=== PATIENT | male | born 1970 | race Caucasian/White ===

== ENCOUNTER 2019-06-15 19:22 | Inpatient (IN) ==
[2019-06-16] MEDS ORDERED: MORPHINE IV PRN ×2 (01:00→21:39)
[2019-06-16] MEDS ORDERED: MORPHINE IV ONE (01:00)
[2019-06-16] MEDS ORDERED: MORPHINE ONE (01:09)
[2019-06-16] MEDS ORDERED: VANCOMYCIN IV PER PHARMACY MISC SCH (01:15)
[2019-06-16] MEDS ORDERED: SODIUM CHLORIDE 0.9% INJ ONE (01:28)
[2019-06-16] MEDS ORDERED: PROTONIX IV ONE (01:28)
[2019-06-16] MEDS ORDERED: SODIUM CHLORIDE 0.9% INJ SCH (01:30)
[2019-06-16] MEDS ORDERED: NS 1,000 ML IV ONE (01:44)
[2019-06-16] MEDS ORDERED: PROTONIX 80 MG in NS 80 ML IV ONE (02:00)
[2019-06-16] MEDS ORDERED: VANCOMYCIN 1 GM/NS 1 GM/250 ML IVPB IV ONE ×2 (02:00→17:00)
[2019-06-16 02:15] LABS: BASO# 0.03 X1000 (0.0-0.2); BASO% 0.1 % (0.0-0.8); HEMATOCRIT 17.7 % (42.0-52.0); HEMOGLOBIN 5.4 g/dL (14.0-18.0); IMM GRAN# 0.12 X1000 (0.0-0.04); IMM GRAN% 0.5 % (0.0-0.5); LYMPH% 5.7 % (20.5-51.1); MCH 29.8 PG (27-31); MCHC 30.5 g/dL (33-37); MCV 97.8 FL (81-99); MONO# 1.06 X1000 (0.11-0.59); MONO% 4.7 % (1.7-9.3); MPV 9.5 FL (7.4-10.4); NEUT# 20.26 X1000 (1.4-6.5); PLT 292 X1000 (130-400); RBC 1.81 XMIL (4.7-6.1); RDW 15.1 % (11.5-14.5); WBC 22.77 X1000 (4.8-10.8)
[2019-06-16] MEDS: MAXIPIME 1 GM in NS 50 ML IV SCH (03:00)
[2019-06-16 03:31] LABS: INR 1.88; PROTIME 22.1 Seconds (11.0-16.0)
[2019-06-16 03:32] LABS: PTT 39.6 Seconds (22.3-41.8)
[2019-06-16 04:11] LABS: ALB/GLOB RATIO 0.7; ALBUMIN 2.6 g/dL (3.5-5.0); CALCIUM 9.4 mg/dL (8.8-10.2); CREATININE 9.5 mg/dL (0.7-1.2); TOTAL BILIRUBIN 0.23 mg/dL (0.20-1.00); TOTAL PROTEIN 6.1 g/dL (6.3-8.3)
[2019-06-16 04:13] LABS: POTASSIUM 6.5 mmol/L (3.5-5.1)
[2019-06-16] MEDS ORDERED: HUMULIN R IV ONE (04:54)
[2019-06-16] MEDS ORDERED: D50W SYRINGE IV ONE (04:54)
[2019-06-16] MEDS ORDERED: CALCIUM GLUCONATE 1 GM in NS 50 ML IV ONE (04:54)
[2019-06-16] MEDS ORDERED: ALBUTEROL 0.5% INH CONC FOR HYPERKALEMIA INH ONE (04:54)
--- NOTE | 2019-06-16 05:37 | EKG Report ---
Test Performed on : 06/16/2019 04:48:20 AM Test Reason : Hyperkalemia Blood Pressure : / mmHG Vent. Rate : 109 BPM Atrial Rate : 109 BPM P-R Int : 220 ms QRS Dur : 108 ms QT Int : 326 ms P-R-T Axes : 057 102 -10 degrees QTc Int : 439 ms Sinus tachycardia. with 1st degree AV block. Rightward axis Abnormal QRS-T angle, consider primary T wave abnormality Abnormal ECG No previous ECGs available Confirmed by Hussain Kemp MD ([id number]) on 06/18/2019 9:00:11 AM
[2019-06-16] MEDS: MORPHINE IV PRN ×4 (05:43→19:37)
[2019-06-16] MEDS ORDERED: LOKELMA POWDER PACKET PO ONE (05:50)
--- NOTE | 2019-06-16 06:00 | Diag Imaging Result Doc PS360 ---
EXAM: CHEST-PORTABLE HISTORY: Evaluate for pneumonia TECHNIQUE: Single view COMPARISON: 05/31/2014 FINDINGS: The lungs are well expanded. The heart is not enlarged. The vessels are not distended. There are no infiltrates. No effusion identified. IMPRESSION: No pneumonia Electronically signed by Scar Jean 06/16/2019 5:57 AM
--- NOTE | 2019-06-16 06:23 | HISTORY AND PHYSICAL ---
ADDENDUM: I agree with most components of history, physical, assessment and plan. This is an addendum to the history and physical dictated by the nurse practitioner. In brief, Mr. Rodrigez is a 48 year old man with past medical history of end-stage renal disease on Wednesday, Wednesday, Wednesday hemodialysis, bilateral chronic lower extremity edema, and poor functional status, who had been developing bilateral gluteal wound ulcers since the last several weeks who saw the general surgeon in his office yesterday morning. However, when he went back home, he started feeling very weak and intermittently confused so he was sent to the [facility] where he was found to have systolic blood pressure of 80/50. WBC count of 31,000 and hemoglobin close to 4.5. He was given 1 unit of packed red blood cells, and then transferred to [facility] Emergency Room. At the time of my evaluation, he is feeling slightly better and more alert. He states that since last several weeks he has been having black bowel movements, but he has not sought any medical attention. He does document to have history of bleeding peptic ulcer disease in 2009. He has been taking nonsteroidal anti-inflammatory drugs for his bilateral gluteal region pain recently. Vitals suggest, it has been not documented, but he is afebrile to touch. His pulse is in the 90s per minute. His blood pressure is 90/50. He is saturating 100% on 2 L nasal cannula. PHYSICAL EXAMINATION: He has muddy sclera. No cyanosis, clubbing, or icterus. LUNGS: Air entry bilaterally equal. No wheeze, rhonchi, or crackles. CARDIOVASCULAR: S1, S2 normal. Tachycardic with heart rate close to 100. No murmur, rub, or gallop. ABDOMEN: Soft. Mild generalized tenderness. EXTREMITIES: Bilateral lower extremity edema. He does have left upper AV fistula, bilateral gluteal region wounds which are stage IV according to discussion with the nurse practitioner. NEUROLOGIC: He is currently alert and oriented x3. LABORATORY: Are pending however according to labs in [facility], [place] [address], hemoglobin of 4.5. His coag's were normal. Troponin's were normal. IMAGING: Chest x-ray does not suggest any organized consolidation. ASSESSMENT AND PLAN: 1. Suspected sepsis from bilateral gluteal wound infection. 2. Acute blood loss anemia, likely due to upper gastrointestinal bleed with use of NSAID pain medications. 3. Hypotension due to sepsis and acute blood loss anemia. 4. End-stage renal disease, on Wednesday, Wednesday, Wednesday hemodialysis with hyperkalemia. 5. Bilateral gluteal region wounds. PLAN: 1. I will give patient intravenous fluid bolus. We will give him blood transfusion with frequent CBC monitoring. I will also start him on sodium zirconium for potassium lowering effect. I will start him on intravenous antibiotics, and follow up with wound culture and blood culture. 2. I will also start him on intravenous pantoprazole bolus with intravenous infusions every 12 hours. We will consult Gastroenterology for possible need for EGD. TIME SPENT: More than 30 minutes of critical care time was spent in taking of this patient. Plan of care discussed with him. His questions were answered. cc: Isiah Morrison MD
[2019-06-16] MEDS ORDERED: VANCOMYCIN 1 GM/NS 1 GM/250 ML IVPB IV SCH (06:45)
[2019-06-16] MEDS ORDERED: NS 500 ML IV ONE (06:47)
[2019-06-16] MEDS ORDERED: TIGHT: 0.2 ML/HR FOR DIALYSIS MISC PRN (06:48)
[2019-06-16] MEDS ORDERED: NS 2,000 ML MISC PRN (06:48)
[2019-06-16] MEDS ORDERED: HEPARIN IV PRN (06:48)
[2019-06-16] MEDS ORDERED: ZOFRAN IV PRN (07:25)
[2019-06-16] MEDS ORDERED: TYLENOL PO PRN (07:29)
[2019-06-16] MEDS ORDERED: LOKELMA POWDER PACKET PO SCH (09:00)
[2019-06-16 10:08] LABS: HEMATOCRIT 28.8 % (42.0-52.0); HEMOGLOBIN 9.8 g/dL (14.0-18.0)
--- NOTE | 2019-06-16 10:19 | HISTORY AND PHYSICAL ---
CONVEYOR TENDER: Luisito Delaney MD. PRIMARY CARE PHYSICIAN: The patient states that he is in the process of switching over to Dr. Tam Pedraza, though has not had his initial appointment as of yet. Former primary care physician was Sj Newman MD. DATE AND TIME: 06/16/2019 at 0030. CHIEF COMPLAINT: Low blood pressure, weakness, and confusion. HISTORY OF PRESENT ILLNESS: Mr. Rodrigez is a 48-year-old male with a past medical history most notable for end-stage renal disease on hemodialysis on Mondays, Wednesdays, and Fridays, nephrogenic systemic fibrosis, anxiety, and Alport syndrome. The patient also reports that he has had a previous history of gastric ulcers in the past as well as a GI bleed. The patient states since October of this year that he has been treated for a right buttock wound and since February of this year he has been being treated for a left buttock wound. He reports that Dr. Galvez with Surgery has been providing wound care treatment outpatient for him. The patient states that due to not being as active that he has had increasing immobility. The patient states that at home that he sits the majority of the time in a recliner with his legs in a dependent position. He also sleeps this way as well. Since his decreased activity, he has also noticed that he has had decrease in his strength as well, though he is still able to ambulate to and from the car to go to his physician appointments. He states that since he has had decreased mobility that he had developed bilateral buttock wounds. The patient reports that he did receive his last dialysis treatment on Wednesday, though due to not feeling well he did not go to his dialysis treatment on Wednesday. He actually did see Dr. Galvez at the wound clinic on , though after returning home he did continue to have weakness, confusion, and low blood pressure and did decided to present to the ER at [place] for further evaluation. The patient also reports that he has had some shortness of breath as well. He also reports that he has been having several episodes of diarrhea on ; this was approximately five to six episodes. They report his stools are very dark, tarry black in color. I did witness this when he had a bowel movement at bedside. The patient denies any abdominal pain other than when he feels like he has to have a bowel movement he reports crampy abdominal pain. Though he does have some chronic pain problems in his back and related to his wounds in his legs. The patient does have chronic bilateral lower extremity swelling, which has been being treated with Unna boots at this time. He states that he has been taking [id number] Aleve as well, though he denies any alcohol use. He also denies any headache, dizziness, lightheadedness, near syncope or syncope. He denies any chest pain. He denies any nausea or vomiting. He denies any dysuria. The patient actually states that he does not produce any urine. Other than his chronic pain related to his bilateral lower extremity swelling, he denies any new or worsening pain, numbness, tingling or swelling in the extremities. The patient was first initially seen at [facility] secondary to possible sepsis, as well as symptomatic anemia. He was transferred to [facility] for further treatment and evaluation. Upon my evaluation he does have a wound noted to each buttock. The one on the right was currently still packed. The one on the left may have had packing noted previously but this had been removed. On examination of his left buttock wound, it was an opening and approximately the size of a golf ball, though the patient's wound is tunneled very deeply. These wounds do have a foul odor present. As previously mentioned, we did note black liquid stool upon examination. The patient is experiencing symptomatic anemia. He was given 1 unit of packed red blood cells at [facility], though upon repeat labs his hemoglobin was 5.4, hematocrit was 17.7, and white blood cell count was 22,770. His potassium was also elevated at 6.5 with a plasma lactate of 3.7 as well. The patient has been borderline hypotension but at this time is maintaining adequate mean arterial pressures that are in the high 60s and 70s. He has been placed in the ICU for close monitoring. REVIEW OF SYSTEMS: A 14-point review of systems was conducted with the patient and all were negative except for pertinent positives mentioned above in the HPI. I would like to note that the patient did deny any known fevers, body aches or chills. PAST MEDICAL HISTORY: 1. End-stage renal disease on hemodialysis on Mondays, Wednesdays and Fridays, followed by Dr. Delaney. 2. Nephrogenic systemic fibrosis. 3. Anxiety. 4. Alport syndrome. 5. Visual problems. 6. Hearing impaired. The patient does wear a hearing aid in his right ear. 7. History of reported GI bleed. From my understanding was possibly gastric ulcers. PAST SURGICAL HISTORY: 1. Left forearm AV fistula. 2. PermCath placement and subsequent removal. 3. Nasal surgery. 4. Tonsillectomy and adenoidectomy. 5. Kidney transplant x2. 6. Parathyroidectomy. 7. Left ear surgery. SOCIAL HISTORY: The patient denies any tobacco, alcohol or illicit drug use. FAMILY HISTORY: Positive for pancreatic cancer and diabetes mellitus. ALLERGIES: The patient has an allergy to ampicillin. HOME MEDICATIONS: We are waiting for the patient's home medication list to be updated and verified. Once done so, we will continue appropriate medications. DIAGNOSTIC DATA: White blood cell count is 22,770, hemoglobin 5.4, hematocrit 17.7, platelet count is 292,000. PT 22.1, INR 1.88, PTT is 39.6. Sodium 137, potassium 6.5, chloride 90, serum bicarb 18, BUN 153, creatinine 9.5, glucose 121, calcium 9.4. Liver function tests are within normal limits except AST is slightly elevated at 37. Plasma lactate was 3.7. Chest x-ray showed no acute disease. This was per Radiology. EKG showed sinus tachycardia with a first-degree AV block and T-wave abnormalities and a rate of 109 with a QTc of 493. Hemoccult stool was positive. PHYSICAL EXAMINATION: VITAL SIGNS: Temperature is 97.3, heart rate 110, respirations 16, and blood pressure is 105/45 with a MAP of 75. The oxygen saturation is 100% on room air. GENERAL: Mr. Rodrigez is a pleasant 48-year-old male who is resting in the inpatient stretcher, though he is experiencing some pain in his legs and back. He was in no acute distress. He was alert and oriented to person, place, time, and situation. HEENT: Head is normocephalic and atraumatic. The pupils are 3 mm bilaterally, were equal and round, though the patient only had a pupillary response in his right eye, which was brisk. The patient reports that he does not have a pupillary response in his left eye and this is not of new onset. The subconjunctivae are pale. The oral mucosa was slightly dry. The oropharynx was clear. NECK: Supple. Trachea midline. CARDIOVASCULAR: The patient has an S1 and S2 present. No murmurs, rubs, or gallops are appreciated, with a regular rate and rhythm. PULMONARY: The patient has symmetrical chest expansion bilaterally. Lung sounds are clear to auscultation in bilateral full mccray. ABDOMEN: Soft, nontender, and nondistended. Bowel sounds are present in all four quadrants and normoactive. EXTREMITIES: No cyanosis or edema noted. Motor and sensory were intact in all extremities. Radial pulses were 2+ bilaterally, though pedal pulses were not able to be palpated due to the patient's Unna boot-type wraps that were present. Though he did have capillary refill that was less than 3 noted in toes distal to his bilateral leg wraps. INTEGUMENTARY: The patient's skin is pink, warm, and dry, though the patient does have two large wounds noted to the bilateral buttocks. The one on his right buttock does have an opening approximately the size of a quarter to golf ball. It does appear that it is tunneled though he does have packing present at this time. Though his left buttock wound was open, if there was packing present it had been removed. The patient's wound opening was approximately the size of a golf ball though was tunneled quite deep. These wounds did have a foul odor noted with some purulent-looking drainage as well. NEUROLOGICAL: The patient is alert and oriented to person, place, time, and situation. He is able to move all extremities. ASSESSMENT AND PLAN: 1. Gastrointestinal bleed. We suspect this is upper gastrointestinal bleed given the patient's history of gastrointestinal bleed in the past as well as his reported nonsteroidal anti- inflammatory drugs use and that he is having melena. He is having symptomatic anemia. He did receive 1 unit of packed red blood cells at [facility]. We will continue with an additional 2 units here after receiving initial lab work upon his arrival at our facility with a hemoglobin of 5.4 and hematocrit of 17.7. He had been borderline hypotensive though at this time is maintaining mean arterial pressures that are in the high 60s and 70s, though we will continue to monitor closely. He will receive the 2 units of blood as well as some intravenous fluids. He will be n.p.o. We will place him with Protonix 40 mg intravenous q.12 h. and have placed a consult with Dr. Juve Brennan with Gastroenterology and will await their evaluation and further recommendations for management. 2. Symptomatic anemia. This is likely secondary to gastrointestinal bleeding. We will continue with treatment as mentioned above in #1. The patient is receiving a blood transfusion. We will repeat a series of hemoglobin and hematocrit for close monitoring. 3. Right and left buttock wounds. The patient does have one wound noted to the right buttock and one wound noted to the left buttock. Dr. Galvez has been treating the patient for these outpatient at the wound clinic. We will place a consult with him and will await his evaluation and further recommendations for management. The patient has been placed with antibiotic coverage of cefepime and vancomycin. We have obtained wound cultures. We have also placed a consult with the wound care nurse. We will continue to follow along. 4. Possible sepsis. We will continue with treatment as mentioned above with antibiotics and fluids. We will closely monitor his blood pressure as well. Blood cultures and wound cultures have been obtained, though the patient at this time does have adequate tissue perfusion. 5. Mild hypotension. As previously mentioned, since receiving a unit of blood and intravenous fluids this has improved. He is maintaining adequate mean arterial pressures at this time, though we will continue to monitor this closely. The patient has been placed in the intensive care unit and we will continue to follow along. 6. End-stage renal disease, on hemodialysis on Mondays, Wednesdays, and Fridays. We have placed a consult with Dr. Delaney. We will await his evaluation, and further recommendations for management. 7. Hyperkalemia. The patient's potassium was 6.5. We have treated him with 8 units of intravenous insulin, 1 amp of D50 intravenously, 1 g of calcium gluconate, and hyperkalemic albuterol nebulizer treatment. We have also gone ahead and given him his initial dose of Lokelma. We have ordered for repeat chemistry later on this morning. We will continue to follow this closely. The patient will be on continuous cardiac telemetry and pulse oximetry with frequent vital signs in the intensive care unit. 8. Deep venous thrombosis (DVT) prophylaxis. He will be provided with sequential compression devices (SCDs). We will hold any anticoagulants given his gastrointestinal bleeding and symptomatic anemia. The patient has been placed in the ICU for close monitoring. He will have vital signs per ICU protocol. We will do strict intake and output, incentive spirometry. Further orders and recommendations pending hospital course, diagnostic studies, and physician evaluation. Dictated by CHARLOTTE Pelaez for Isiah Morrison MD cc: Isiah Morrison MD MTDD
[2019-06-16 10:38] LABS: CALCIUM 9.6 mg/dL (8.8-10.2); CREATININE 4.5 mg/dL (0.7-1.2); POTASSIUM 3.6 mmol/L (3.5-5.1)
--- NOTE | 2019-06-16 11:13 | PROGRESS NOTE ---
DATE: 06/16/2019 SUBJECTIVE: This patient is getting dialysis at this moment. He is complaining of back pain. He is also complaining of gluteal discomfort. He does have ulcers in the gluteal area with some necrotic areas,. I could not see them completely because it is really hard to move him during dialysis, but the Surgery Department has been consulted and probably they will do an I and D on that area. His lower extremities are wrapped and they are swollen. He is hard of hearing, and likely he is blind also. OBJECTIVE: Vital Signs: Temperature 97.1 degrees, pulse 119, respiratory rate 18, blood pressure 103/59, oxygen saturation is 100% on nasal cannula. HEENT: Head normocephalic, atraumatic. Neck: Supple. No JVD. No masses. Central trachea. Chest: Clear to auscultation. Some crepitus at the bases. Abdomen: Soft, nontender, nondistended. No hepatosplenomegaly. Extremities: Bilateral lower extremities his legs are wrapped and that looks new. His toes are swollen and a little bit red. All his fingers from his left hand have been removed previously. He has ulcers at the level of the buttock area bilaterally. They seem to be deep with some necrotic areas/black areas. A strong odor that as per the patient has been going on for a few weeks. Neurological: The patient is alert. He is oriented. He is hard of hearing and likely he is blind. LABORATORY DATA: WBC 22.7, hemoglobin 5.4, hematocrit 17.7, platelets 292,000. Sodium 137, potassium 6.5, chloride 90, bicarbonate 18, BUN 153, creatinine 9.6, glucose 121, calcium 9.4, lactate 3.7. ASSESSMENT AND PLAN: 1. Sepsis likely from his bilateral gluteal wounds. He has been placed on cefepime and vancomycin, we will continue with the same management. The Surgery Department and Nephrology Department has been consulted. 2. End-stage renal disease on hemodialysis. This patient is getting dialysis at this moment. We will monitor. 3. Acute blood loss anemia likely due to upper GI bleed with the use of NSAIDs for pain management. He is getting some units of packed red blood cells, at least 3, and the Gastroenterology Department has been consulted. 4. This patient is hard of hearing and likely he is blind. 5. Hyperkalemia. He is getting dialysis at this moment. CRITICAL CARE TIME: 35 minutes for this patient. cc: Jaron Bazzi MD
--- NOTE | 2019-06-16 12:11 | GENERAL SURGERY CONSULTATION ---
DATE: 06/16/2019 REQUESTING PHYSICIAN: Hospitalist REASON FOR CONSULTATION: Sacral decubitus wounds. HISTORY OF PRESENT ILLNESS: This is a 48-year-old gentleman who I follow [facility], who has Alport syndrome, who we recently saw yesterday in the [facility]. He apparently has had issues with diarrhea, but he did not express this to us at the [facility]. He has had dark tarry stool and became hypotensive and anemic. He was initially seen in [place] and then transferred over here. His hematocrit upon arrival was 17.7. He has been admitted and resuscitated for this GI bleed. I was asked to weigh an opinion on his wounds. His wounds overall, especially to his lower extremities, have been healing significantly. His wounds and pressure ulcers to his hips have improved also. PAST MEDICAL HISTORY: Full list reviewed, but of note, he has Alport syndrome. PAST SURGICAL HISTORY: Full list reviewed. Of note, he has had an AV fistula and previous amputations. SOCIAL HISTORY: Lives at home. ALLERGIES: Ampicillin. HOME MEDICATIONS: Reviewed. REVIEW OF SYSTEMS: A full 14 systems reviewed and negative except as specified in HPI. PHYSICAL EXAMINATION: Vital Signs: The patient is appears chronically ill. He has been afebrile. Pulse 119, blood pressure 104/53. General: Chronically ill male, looks older than stated age. HEENT: Normocephalic, atraumatic. Pupils equal, round, reactive to light. Mucous membranes moist. Oropharynx benign. Neck: Supple. Trachea midline. Cardiovascular: Some mild tachycardia. Lungs: Grossly clear. Abdomen: Soft, nontender. Extremities: Previous amputation noted. Wounds to the sacrum and ischium noted. Lower extremities both have Unna boot. I reviewed his wounds yesterday in the [facility], and they were normal. Skin: Pale. Neurologic: Grossly intact. LABORATORY: Reviewed from early this morning. Hematocrit 17. Potassium is 6.5. Lactate 3.7. White blood cell count 22.7. ASSESSMENT AND PLAN: A 48-year-old man with possible GI bleed. 1. Possible gastrointestinal bleed. At this time, I recommend a GI consult. I agree with resuscitation and close monitoring. He does have a significant leukocytosis, and he has been started on cefepime. He may need further imaging to evaluate any intra-abdominal process causing this. I do not suspect his leukocytosis is related to his wound because his wounds actually have been healing and improving. We will continue to follow over the weekend. 2. Pressure ulcers. At this time, continue local wound care. We will get full instructions back from the [facility] Care Center. cc: Jim Galvez MD
[2019-06-16] MEDS: LOKELMA POWDER PACKET PO SCH ×2 (12:42→16:51)
[2019-06-16] MEDS: PROTONIX IV SCH ×2 (14:30→19:43)
[2019-06-16] MEDS: DAKIN'S 0.25% SOLN TOP SCH ×2 (14:31→20:49)
--- NOTE | 2019-06-16 15:21 | GASTROENTEROLOGY CONSULTATION ---
DATE: 06/16/2019 REASON FOR CONSULTATION: Acute blood loss anemia and melena. HISTORY OF PRESENT ILLNESS: Mr. Hussain Rodrigez is a 49-year-old gentleman with end-stage renal disease on hemodialysis, chronic lower extremity edema, and bilateral gluteal ulcers, who presented yesterday with hypotension, generalized weakness, confusion, and found to have a hemoglobin of 5.4 from unknown baseline. History obtained primarily from the chart as patient is not cooperative with interview at bedside. He says that he is irritated. Per report, the patient was seen by his general surgeon yesterday morning for his bilateral gluteal ulcers. He went home that day, and started feeling weak and confused. Initially, he was sent to [facility] and found to have a blood pressure of 80/50. [place] [address] and hemoglobin of 4.5. He was given 1 unit of packed red blood cells and transferred to [facility]. He reports that he had several weeks of black bowel movements but, has not sought attention for this. He does have a remote history of peptic ulcer disease in 2009 and has been taking NSAIDs [id number] for his gluteal pain. On presentation here to the hospital, he was found to have a blood pressure of 90/50 and tachycardic. He was started on antibiotics with vancomycin and cefepime, given IV fluid bolus of normal saline, and started on IV PPI 40 mg twice a day, and has been transfused 3 units of packed red blood cells. REVIEW OF SYSTEMS: Limited given patient is not cooperative with interview. PAST MEDICAL HISTORY: As per HPI. Other: Patient has partial blindness, and has hearing loss. PAST SURGICAL HISTORY: He has a history of AV fistula, and prior tunneled dialysis catheter placement. MEDICATIONS: They have not been reconciled. ALLERGIES: Ampicillin. SOCIAL HISTORY: Unable to obtain. FAMILY HISTORY: Unable to obtain. PHYSICAL EXAMINATION: Vital Signs: Current temperature 96.5 degrees, heart rate of 113, respiratory rate 16, blood pressure 83/51, and O2 saturation 100% on room air. General: Patient is awake, alert, and in no acute distress. Does not make eye contact. Does not answer any questions. Reports feeling irritated. HEENT: Sclerae anicteric. Moist mucous membranes. Extraocular motor intact. Neck: Supple. No JVD or lymphadenopathy. Cardiac: Tachycardic. No murmurs. Lungs: Clear to auscultation bilaterally anteriorly. Abdomen: Soft, nontender, and nondistended. Bowel sounds present. Extremities: He has some compression dressings bilaterally with some 1 to 2+ edema of his lower extremities. Reviewed images of his gluteal lesions. He has pretty significant open wounds in his buttocks bilaterally with necrotic tissue. LABORATORY: White count of 22.7, hemoglobin is 5.4, and platelets of 292,000. INR is 1.88. Sodium 137, potassium 6.5, chloride of 90, bicarb of 18. Anion gap of 29, BUN of 153, creatinine 9.5, and glucose of 121. LFTs notable for AST of 37, total protein 6.1, albumin 2.6, and lactate of 3.7. ASSESSMENT AND PLAN: Mr. Hussain Rodrigez is a 48-year-old gentleman with past medical history of end-stage renal disease on hemodialysis, bilateral decubitus ulcers in the buttocks, and history of peptic ulcer disease, who presents with hypotension in the setting of sepsis plus or minus and acute blood loss. GI is consulted for normocytic anemia and melena. The patient has been transfused 3 units since admission. We will check a post transfusion hemoglobin. Avoid any NSAIDs or blood thinners. He is on antibiotics for probable wound infections. Surgery has been consulted. Nephrology is following. The patient is undergoing dialysis currently. Recommend continuing IV Protonix b.i.d., and trend his hemoglobin every 6 to 8 hours and transfuse to goal hemoglobin of 7 to 8. His INR is 1.88 consistent with some mild coagulopathy likely nutritional given his albumin is also low. Recommend rechecking lactate as per primary correcting hyperkalemia and metabolic derangements. We will consider diagnostic EGD in the next 24 to 48 hours depending on clinical course. We will hold off at this time until his hyperkalemia is improved and hemodynamics are better. Thank you for this consult. We will follow with you. Please call with any questions or concerns.
--- NOTE | 2019-06-16 15:26 | NEPHROLOGY CONSULTATION ---
DATE: 06/16/2019 REASON FOR CONSULTATION: Assistance with management, ESRD. I was recently contacted by the ER staff in [facility] and the ER staff in [facility]. HISTORY OF PRESENT ILLNESS: Mr. Rodrigez is a 48-year-old white male who is known to us from the outpatient dialysis arena. He has been on dialysis for 15+ years and has had a debilitating declining course in the last year. He has severe peripheral neuropathy and chronic pain, metabolic bone disease, etc. Because of this, his mobility is low and has been declining. He has been dealing with severe decubitus ulcers, and I believe Dr. Galvez has been helping him manage these problems. He presented to the emergency room in [place] with severe weakness. His initial evaluation found a hemoglobin of 4. He received 1 unit of blood after consultation with me, and then arrangements were made to transfer. At the time of my exam, he is obtunded. Eyes are half open, but he does not answer any of my questions. He does respond to tactile stimuli, but not enough to be aroused. The notes indicate that he was experiencing melenic stool for an extended time, but did not seek medical attention. PAST MEDICAL HISTORY: ESRD, IgA nephropathy, hypertension, decubitus ulcers, anemia, metabolic bone disease, hyperphosphatemia, chronic pain syndrome. HOME MEDICATIONS: Include cyproheptadine, guaifenesin, naproxen, morphine ER, fentanyl, ciprofloxacin, ondansetron. ALLERGIES: Penicillin. SOCIAL HISTORY: He is and lives with his in the [place] area. No alcohol or tobacco. FAMILY HISTORY: Otherwise noncontributory. REVIEW OF SYSTEMS: Otherwise noncontributory. PHYSICAL EXAMINATION: Vital Signs: Blood pressure 83/51, heart rate 113, respirations 16, afebrile. Generally: As above. Skin: Pale and dry. HEENT: Conjunctivae are pale. Pupils are equal. Oropharynx is dry. Neck: The neck veins are not appreciated. Heart: Distant, but regular. Lungs: Equal, shallow, no crackles. Abdomen: Soft. Bowel sounds are diminished. No organomegaly. Extremities: Have 3+ edema that is woody. Lower legs are dressed. IMPRESSION AND PLAN: 1. Chronic kidney disease 5D. Dialysis today with 2-potassium bath and a goal of 3 to 4 liters as his blood pressure allows. 2. Hyperkalemia. Secondary to gastrointestinal bleeding and transfusion. Plan as above. 3. Metabolic acidosis. Presumably related to his renal dysfunction. Observe. 4. Profound anemia. Gastrointestinal has been consulted. Transfuse to hemoglobin greater than 8. 5. I have reviewed his medications. I have dosed vancomycin as per the request of the primary team. No other changes. cc: Luisito Delaney MD
[2019-06-16 15:59] LABS: HEMATOCRIT 25.5 % (42.0-52.0); HEMOGLOBIN 8.5 g/dL (14.0-18.0)
[2019-06-16 22:47] LABS: HEMATOCRIT 22.3 % (42.0-52.0); HEMOGLOBIN 7.3 g/dL (14.0-18.0)
[2019-06-16] MEDS ORDERED: NS 250 ML ONE (23:24)
[2019-06-17] MEDS: MAXIPIME 1 GM in NS 50 ML IV SCH (00:24)
[2019-06-17] MEDS ORDERED: OFIRMEV 1000 MG/ISOTONIC SOLN 1,000 MG/100 ML BOTTLE IV ONE (00:55)
[2019-06-17] MEDS: MORPHINE IV PRN ×2 (03:04→06:10)
[2019-06-17 05:08] LABS: BASO# 0.02 X1000 (0.0-0.2); BASO% 0.1 % (0.0-0.8); EOS# 0.04 X1000 (0.0-0.7); EOS% 0.2 % (0.0-10.0); HEMATOCRIT 24.9 % (42.0-52.0); HEMOGLOBIN 8.3 g/dL (14.0-18.0); IMM GRAN# 0.12 X1000 (0.0-0.04); IMM GRAN% 0.6 % (0.0-0.5); LYMPH# 1.44 X1000 (1.2-3.4); LYMPH% 7.3 % (20.5-51.1); MCH 29.3 PG (27-31); MCHC 33.3 g/dL (33-37); MONO# 1.42 X1000 (0.11-0.59); MONO% 7.2 % (1.7-9.3); MPV 9.6 FL (7.4-10.4); NEUT# 16.61 X1000 (1.4-6.5); NEUT% 84.6 % (42.2-75.2); PLT 235 X1000 (130-400); RBC 2.83 XMIL (4.7-6.1); RDW 15.8 % (11.5-14.5); WBC 19.65 X1000 (4.8-10.8)
[2019-06-17 05:21] LABS: ALB/GLOB RATIO 0.7; ALBUMIN 2.7 g/dL (3.5-5.0); CALCIUM 9.1 mg/dL (8.8-10.2); CREATININE 6.4 mg/dL (0.7-1.2); POTASSIUM 4.8 mmol/L (3.5-5.1); TOTAL BILIRUBIN 0.43 mg/dL (0.20-1.00); TOTAL PROTEIN 6.4 g/dL (6.3-8.3)
[2019-06-17 07:06] LABS: BANDS 2 % (0-1); LYMPHS 6 % (21-51); MONO 2 % (1-9); SEGS 88 % (42-75)
[2019-06-17] MEDS: PROTONIX IV SCH (08:02)
[2019-06-17] MEDS: DAKIN'S 0.25% SOLN TOP SCH ×2 (08:04→21:37)
[2019-06-17] MEDS ORDERED: AMIDATE ONE ×2 (09:06→09:52)
[2019-06-17] MEDS ORDERED: XYLOCAINE-MPF 2% ONE (09:06)
--- NOTE | 2019-06-17 09:20 | PROGRESS NOTE ---
DATE: 06/17/2019 SUBJECTIVE: As per the patient, he is feeling better today compared with yesterday, but he is complaining of a lot of back pain and gluteal pain. He is going today for an EGD and during sedation also we will try to clean his wounds. Hemoglobin and hematocrit are better than compared with yesterday. We will continue to monitor. We will continue with antibiotics. OBJECTIVE: Vital Signs: Temperature 98.9 degrees, pulse 91, respiratory rate 18, blood pressure 108/62, oxygen saturation 100% on room air. HEENT: Head normocephalic. No trauma. Neck: Supple. No JVD. No masses. Central trachea. Chest: Clear to auscultation. Some crepitus at the bases. Abdomen: Soft, nontender, nondistended. No hepatosplenomegaly. Extremities: His legs are wrapped, his toes are swollen and a little bit red. Also, his finger from his left hand has been removed previously. He has an ulcer at the level of the buttock area bilaterally. This seems to be deep with some necrotic tissue and/or black area. Neurological: The patient is alert, he is oriented. He is hard of hearing and probably he also has some blindness. LABORATORY: WBC 19.6, hemoglobin 8.3, hematocrit 24.9, platelets 235. Sodium 139, potassium 4.8, chloride 95, bicarbonate 22. BUN 89, creatinine 6.4, glucose 111, calcium 9.1. ASSESSMENT AND PLAN: 1. Sepsis secondary to bilateral gluteal wounds. He has been placed on broad-spectrum antibiotics. We will continue with same management. Surgery Department and Nephrology Department on board. 2. End-stage renal disease on hemodialysis. This patient received dialysis yesterday. We will continue to monitor. 3. Acute blood loss anemia, likely due to upper gastrointestinal bleed. Apparently he was using nonsteroidal anti-inflammatory drugs for pain management. He received 4 units of packed red blood cells yesterday, and his hemoglobin improved; upon admission was 5.4 and today is 8.3. He will have an endoscopy done today. 4. Hyperkalemia, resolved. Today is 4.8 upon admission was 6.5. 5. Patient is hard of hearing and probably blind. CRITICAL CARE TIME: 35 minutes. cc: Jaron Bazzi MD
[2019-06-17] MEDS ORDERED: FENTANYL ONE (09:59)
--- NOTE | 2019-06-17 09:59 | ENDOSCOPY OPERATIVE NOTE ---
[facility] ENDOSCOPY OPERATIVE NOTE , PATIENT: Hussain Rodrigez ADMISSION DATE: 06/17/2019 [facility]#: [id number] [facility] 1970 [id number] EGD PROCEDURE REPORT PROCEDURE DATE: 06/17/2019 SURGEON: Juve Brennan MD STATUS: inpatient LOADER ENGINEER: PREOPERATIVE DIAGNOSIS: The patient is a 48 yr old male here for an EGD due to anemia and melena. PROCEDURE PERFORMED: EGD, diagnostic MEDICATIONS: Per Anesthesia TOPICAL ANESTHETIC: none CONSENT: The patient understands the risks and benefits of the procedure and understands that these r isks include, but are not limited to: sedation, allergic reaction, infection, perforation and/or bleeding. Alternative means of evaluation and treatment include, among others: physical exam, x-rays, and/or surgical intervention. The patient elects to proceed with this endoscopic procedure. HISORY AND PHYSICAL: 06/17/2019 function. Hand hygiene and appropriate measures for infection prevention was taken. After the risks, benefits and alternatives of the procedure were thoroughly explained, Informed consent was verified, confirmed and timeout was successfully executed by the treatment team. The patient was anesthetized with topical anesthesia and the [id number] ([id number]) endoscope was introduced through the mouth and advanced to the second portion of the duoden um. Retroflexion was performed in the stomach and revealed no abnormalities. The gastroscope was then slowly withdraw n and removed. ESOPHAGUS: Esophagitis was found at the gastroesophageal junction. Esophagitis was LA Class A: One o r more mucosal breaks < 5 mm in maximal length. STOMACH: Two non-bleeding and clean-based, cratered ulcers ranging between 5-9mm in size were found i n the prepyloric region of the stomach. Mild gastritis (inflammation) was found in the gastric body. DUODENUM: A single non-bleeding and clean-based ulcer ranging between 3-5 mm in size was found in the duodenal bulb. Mild duodenal inflammation was found in the duodenal bulb. Normal 2nd part of the duodenum. SPECIMENS REMOVED: No ADVERSE EVENTS: There were no complications. POSTOPERATIVE DIAGNOSIS: ESOPHAGUS: Esophagitis was found at the gastroesophageal junction. Esophagitis was LA Class A: One o r more mucosal breaks < 5 mm in maximal length. STOMACH: Two non-bleeding and clean-based, cratered ulcers ranging between 5-9mm in size were found i n the prepyloric region of the stomach. Mild gastritis (inflammation) was found in the gastric body. DUODENUM: A single non-bleeding and clean-based ulcer ranging between 3-5 mm in size was found in the duodenal bulb. Mild duodenal inflammation was found in the duodenal bulb. Normal 2nd part of the duodenum. RECOMMENDATIONS: Transition PPI from IV to oral pantoprazole 40mg PO BID and continue for 3 month s Advance diet as tolerated Avoid NSAIDs/aspirin Trend H/H daily, transfuse prn for goal hgb 7-8 Recommend repeat EGD in 3 months to assess ulcer healing REPEAT EXAM: Juve Brennan MD eSigned: Juve Brennan MD 06/17/2019 9:58 AM cc: PATIENT NAME: Hussain Rodrigez MR#: [id number]
[2019-06-17] MEDS: DILAUDID IV PRN ×4 (10:45→22:50)
--- NOTE | 2019-06-17 14:37 | GENERAL SURGERY PROGRESS NOTE ---
DATE: 06/17/2019 SUBJECTIVE: Wound care is going okay. No fevers. No further GI bleeding. Pulse 91, blood pressure 108/62, oxygen saturation 100 percent. General. He is alert. Abdomen soft. Unna wraps are in place on bilateral lower extremities. White count down to 19, hematocrit 24, creatinine 6.4. ASSESSMENT/PLAN: 48-year-old gentleman with a chronic sacral and leg wounds. He presents now with a gastrointestinal bleed. Plan for endoscopy with Dr. Brennan this morning. Will continue treatment of this, local wound care, dressing changes. I also believe he is undergoing dressing changes under anesthesia while in the endoscopy suite. cc: Myra Agarwal MD
--- NOTE | 2019-06-17 15:08 | NEPHROLOGY PROGRESS NOTE ---
DATE: 06/17/2019 SUBJECTIVE: He is in pain and he attributes this to lying in the bed. He states he has not been in a bed in years. His pain is related to his wounds. OBJECTIVE: Vital Signs: Blood pressure 129/86, heart rate 109, respirations 16, afebrile. General: No acute distress. Skin: Warm and dry. Neck: Neck veins are not distended, are not visible. Heart: Regular. Lungs: Equal. Abdomen: Soft. Extremities: Have 3+ edema. IMPRESSION: 1. Chronic kidney disease 5D. He will have his next routine dialysis on Wednesday. 2. Electrolytes/acid base in target. 3. Anemia. Hemoglobin is stable at 8.3. Endoscopy demonstrated several ulcers but no active bleeding. 4. Bacteremia. Blood cultures were positive at [facility]. Those results are not in our system as of yet. He is receiving vancomycin and cefepime. cc: Luisito Delaney MD
[2019-06-17] MEDS: PROTONIX PO SCH (21:37)
[2019-06-18] MEDS: MAXIPIME 1 GM in NS 50 ML IV SCH (01:15)
[2019-06-18] MEDS: DILAUDID IV PRN ×6 (02:04→21:39)
[2019-06-18 06:35] LABS: BASO# 0.04 X1000 (0.0-0.2); BASO% 0.2 % (0.0-0.8); EOS% 0.5 % (0.0-10.0); HEMATOCRIT 27.5 % (42.0-52.0); HEMOGLOBIN 8.6 g/dL (14.0-18.0); IMM GRAN# 0.15 X1000 (0.0-0.04); IMM GRAN% 0.7 % (0.0-0.5); LYMPH# 2.18 X1000 (1.2-3.4); MCH 28.8 PG (27-31); MCHC 31.3 g/dL (33-37); MONO# 1.57 X1000 (0.11-0.59); MONO% 7.2 % (1.7-9.3); MPV 9.9 FL (7.4-10.4); NEUT# 17.77 X1000 (1.4-6.5); NEUT% 81.4 % (42.2-75.2); PLT 230 X1000 (130-400); RBC 2.99 XMIL (4.7-6.1); RDW 16.8 % (11.5-14.5); WBC 21.81 X1000 (4.8-10.8)
[2019-06-18 07:04] LABS: CALCIUM 9.5 mg/dL (8.8-10.2); CREATININE 7.6 mg/dL (0.7-1.2); MAGNESIUM 2.4 mg/dL (1.5-2.7); PHOSPHORUS 4.6 mg/dL (2.7-4.5); POTASSIUM 5.6 mmol/L (3.5-5.1)
[2019-06-18] MEDS ORDERED: HUMULIN R IV ONE (07:47)
[2019-06-18] MEDS ORDERED: ALBUTEROL 0.5% INH CONC FOR HYPERKALEMIA INH ONE (07:47)
[2019-06-18] MEDS ORDERED: CALCIUM GLUCONATE 4.65 MEQ in NS 50 ML IV ONE (07:48)
[2019-06-18] MEDS ORDERED: LOKELMA POWDER PACKET PO STA (07:48)
[2019-06-18] MEDS ORDERED: D50W SYRINGE IV ONE (07:48)
--- NOTE | 2019-06-18 08:02 | PROGRESS NOTE ---
DATE: 06/18/2019 SUBJECTIVE: The patient is feeling better today. He is status post EGD yesterday. He is sitting at the bedside. He is complaining of bilateral lower extremity and gluteal area pain. His potassium level is 5.6 today. I will treat the potassium since his next routine dialysis is on Wednesday. OBJECTIVE: Vital Signs: Temperature 98.9 degrees, pulse 101, respiratory rate 18, blood pressure 92/51, oxygen saturation 98 on room air. HEENT: Head normocephalic. No trauma. Neck: Supple. No JVD. No masses. Central trachea. Chest: Clear to auscultation. Some crepitus at the bases. Abdomen: Soft, nontender, nondistended. No hepatosplenomegaly. Extremities: His legs are wrapped. His toes are swollen and a little bit red. Also, his fingers on his left hand have been removed previously. He has an ulcer at the level of the buttock bilaterally. It is covered right now. Neurological: The patient is alert. He is oriented. He is hard of hearing, and probably he is legally blind as well. LABORATORY DATA: WBC 21.8, hemoglobin 8.6, hematocrit 27.5, platelets 230,000. Sodium 136, potassium 5.6, chloride 93, bicarbonate 20, BUN 103, creatinine 7.6, glucose 103, calcium 9.5. Phosphorus 4.6, magnesium 2.4. ASSESSMENT AND PLAN: 1. Sepsis secondary to bilateral gluteal wounds. Continue broad-spectrum antibiotics. I will stop the vancomycin because his cultures showed Escherichia coli. I have requested an evaluation by Infectious Disease Department. Surgery Department on board. 2. End-stage renal disease, on hemodialysis. He will get his next dialysis tomorrow. Will monitor. 3. Hyperkalemia. I will treat it today. It is 5.6. 4. Acute blood loss anemia, likely due to upper gastrointestinal bleed. Apparently, he was using nonsteroidal anti-inflammatory drugs to control his pain. He received 4 units of packed red blood cells. Hemoglobin and hematocrit have been stable. He is status post endoscopy that showed esophagitis at the gastroesophageal junction, LA Class A, one or more mucosal breaks less than 5 mm in maximal length. Stomach: He has two nonbleeding and clean base cratered ulcers ranking between 5 to 9 mm in size, and those were found in the prepyloric region of the stomach. Also, he has mild gastritis in the gastric body. In the duodenum, they found a single nonbleeding and clean based ulcer ranking between 3 to 5 mm in size at the duodenal bulb. Mild duodenitis as well. They have recommended to stop completely the nonsteroidal anti-inflammatory drugs, proton pump inhibitor by mouth twice a day for 3 months, avoid aspirin, and trend hemoglobin and hematocrit daily. Transfuse as needed for goal hemoglobin of 7 to 8. Also, they have recommended an esophagogastroduodenoscopy to be done in 3 months to re-evaluate those ulcers. 5. Gastric ulcers and duodenal ulcer as above. 6. Hyperkalemia. I will treat the potassium. 7. The patient is hard of hearing, and likely blind as well. cc: Jaron Bazzi MD
[2019-06-18] MEDS: PROTONIX PO SCH ×2 (08:41→21:40)
[2019-06-18] MEDS ORDERED: KEFZOL 1 GM/D5W 1 GM/50 ML IVPB IV SCH (09:45)
--- NOTE | 2019-06-18 10:57 | INFECTIOUS DISEASE CONSULT REP ---
DATE: 06/18/2019 CONCLUSION: I have been asked to see the patient regarding his bilateral buttock infected decubitus ulcers. Culture from the ulcer is growing Escherichia coli. I suspect that because the ulcers have a foul odor that there may be an anaerobic component to the patient's infections in both buttocks. Therefore, I am going to add p.o. Flagyl, even though an anaerobic organism has not been discovered yet from the patient's buttock decubitus ulcers. RECOMMENDATIONS: I have substituted Ancef at 1 g IV after each dialysis and I have discontinued cefepime. I have added Flagyl just in case there is an anaerobic component to the patient's ulcers. DISCUSSION: Patient is admitted the hospital with infected bilateral infected buttock decubitus ulcers. They do tunnel. They go fairly deep but they do not go down to the bone. He has been treated as an outpatient for the ulcers. PAST MEDICAL HISTORY/REVIEW OF SYSTEMS: Eyes/Ears: Patient has decreased hearing and vision. Neck: No stiffness. Respiratory: No cough or shortness of breath. Cardiac: No chest pain or palpitations. Abdomen: No nausea, vomiting, or diarrhea. Genitourinary: The patient does not pass any urine. He is eating and he does pass stool. No urine because the patient has end-stage renal disease and is on dialysis. Neurologic: No seizures. The patient can move his extremities, but it is difficult for him to do it. LABORATORY DATA: Patient's ulcers grew Escherichia coli. The patient's CBC shows a white count of 21,810, hemoglobin 8.6, platelet count 230,000. Stool for Clostridium difficile was negative. Creatinine 7.6. GFR is 8. AST is 56. PAST MEDICAL HISTORY: Positive for end-stage renal disease. The patient is on hemodialysis. The patient also has nephrogenic systemic fibrosis. He also has anxiety, Alport syndrome, impaired vision and hearing, and history of GI bleed. PAST SURGICAL HISTORY: Positive for creation of a left arm AV fistula. The patient has had a PermCath placement and then it was removed. The patient has had nasal surgery, tonsillectomy, kidney transplant x2, parathyroidectomy, and left ear surgery. SOCIAL HISTORY[place] . He lives with his mother and son. He has a dog as a pet. The patient does not drink alcohol. He does not use illicit drugs. He does not smoke cigarettes. ALLERGIES: The patient is allergic to ampicillin, he has hives. However, he has had Keflex and tolerated it well. He also during this hospital hospitalization has been having cefepime and tolerating it well. The patient does not smoke cigarettes, drink alcoholic beverages or abuse drugs. FAMILY HISTORY: Positive for diabetes mellitus and pancreatic cancer. HOME MEDICATIONS: Include 1. Ciprofloxacin. 2. Dexamethasone otic drops. 3. Periactin. 4. Fentanyl. 5. Guaifenesin. 6. Morphine. 7. Naproxen. 8. Zofran. PHYSICAL EXAMINATION: Vital Signs: Temperature is 99.9 degrees, pulse 105, respirations 17, blood pressure 97/59. Patient weighs 158 pounds. General: This is an ill- appearing, middle-aged male. He is in no acute distress. Head/eyes/ears/nose/throat: He has decreased hearing and vision. Neck: No meningismus. Lungs: Clear to auscultation. Cardiovascular: Heart rate is regular with a systolic murmur. Abdomen: Soft and nontender. Extremities: In the left arm, the patient has an AV fistula. The site is not erythematous or draining. 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 Both legs are edematous. they have a large dressing around them. Neurologic: The patient is awake. He is very weak. He does not have a tremor. Integument: No rash. Buttocks: Bilateral purulent and foul smelling ulcers. The ulcers are about the size of a golf ball. Thank you for the consult. cc: Justino Smith MD [facility] CENTERJuanito
--- NOTE | 2019-06-18 11:36 | PROVIDER PROGRESS NOTE ---
Progress Note S: No acute overnight events. No N/V/F, abdominal pain. He is tolerating diet. No rectal bleeding or melena. O: Last Vital Signs Temp 99.9 F H 06/18/19 07:38 Pulse 114 H 06/18/19 10:03 Resp 12 06/18/19 10:03 BP 91/54 06/18/19 10:03 Pulse Ox 100 06/18/19 09:03 Height 6 ft Weight 158 lb GEN: chronically ill appearing, NAD, sitting upright HEENT: anicteric, MMM NECK: supple CV: tachycardic, regular PULM: CTAB, no wheezing ABD: soft NT/ND, NABS EXT: chronic edema, both LEs are wrapped NEURO: moving all extremities LABS: 06/18/19 06/18/19 05:00 05:00 WBC 21.81 H Hgb 8.6 L Plt Count 230 Sodium 136 Potassium 5.6 H D Chloride 93 L Carbon Dioxide 20 L BUN 103 H Creatinine 7.6 H EGD 06/17/2019 ESOPHAGUS: Esophagitis was found at the gastroesophageal junction. Esophagitis was LA Class A: One or more mucosal breaks < 5 mm in maximal length. STOMACH: Two non-bleeding and clean-based, cratered ulcers ranging between 5-9mm in size were found in the prepyloric region of the stomach. Mild gastritis (inflammation) was found in the gastric body. DUODENUM: A single non-bleeding and clean-based ulcer ranging between 3-5 mm in size was found in the duodenal bulb. Mild duodenal inflammation was found in the duodenal bulb. Normal 2nd part of the duodenum. A/P: Mr. Hussain Rodrigez is a 48-year-old gentleman with past medical history of end-stage renal disease on hemodialysis, bilateral decubitus ulcers in the buttocks, and history of peptic ulcer disease who presented with hypotension in the setting of sepsis and acute blood loss anemia in the setting of PUD. EGD showed mild esophagitis, gastritis, and duodenitis as well as 3 clean-based ulcers (2 in antrum and 1 in duodenal bulb). These are likely NSAID-induced in the setting of Advil use. No further bleeding. Hgb stable. # Bleeding PUD: cont oral pantoprazole 40mg PO BID and continue for 3 months; repeat EGD in 3 months to check for healing; avoid NSAIDs # Acute blood loss anemia: hgb stable; trend daily, transfuse prn goal hgb 7-8 # Infected decubitus ulcers: on abx per primary # ESRD: on HD per renal Will sign off. Please call with questions.
[2019-06-18] MEDS: DAKIN'S 0.25% SOLN TOP SCH ×2 (11:44→21:40)
[2019-06-18] MEDS: FLAGYL PO SCH ×2 (12:32→21:40)
--- NOTE | 2019-06-18 16:48 | GENERAL SURGERY PROGRESS NOTE ---
DATE: 06/18/2019 SUBJECTIVE: He is out of the bed to chair today. He has got an Unna wraps in places. OBJECTIVE: Low-grade tachycardia. No fevers. Blood pressure 110/63. DIAGNOSTIC STUDIES: I have reviewed his labs. White count 21, hematocrit 27. Creatinine 7.6, potassium is up to 5.6. ASSESSMENT AND PLAN: This is a 48-year-old gentleman with multiple medical issues. He was admitted with gastrointestinal bleed, found have ulcers for his leg, wound change regarding his sacrum, and antibiotics. Monitor going forward. cc: Myra Agarwal MD MTDD
[2019-06-19] MEDS: DILAUDID IV PRN ×7 (00:33→23:56)
[2019-06-19] MEDS: FLAGYL PO SCH ×3 (04:16→21:01)
[2019-06-19 06:19] LABS: BASO# 0.03 X1000 (0.0-0.2); BASO% 0.2 % (0.0-0.8); EOS# 0.13 X1000 (0.0-0.7); EOS% 0.9 % (0.0-10.0); HEMATOCRIT 25.8 % (42.0-52.0); HEMOGLOBIN 8.1 g/dL (14.0-18.0); IMM GRAN# 0.11 X1000 (0.0-0.04); IMM GRAN% 0.7 % (0.0-0.5); LYMPH# 1.03 X1000 (1.2-3.4); LYMPH% 6.8 % (20.5-51.1); MCH 28.9 PG (27-31); MCHC 31.4 g/dL (33-37); MCV 92.1 FL (81-99); MONO# 1.06 X1000 (0.11-0.59); MPV 9.8 FL (7.4-10.4); NEUT# 12.75 X1000 (1.4-6.5); NEUT% 84.4 % (42.2-75.2); PLT 207 X1000 (130-400); RDW 16.4 % (11.5-14.5); WBC 15.11 X1000 (4.8-10.8)
--- NOTE | 2019-06-19 06:39 | GENERAL SURGERY PROGRESS NOTE ---
DATE: 06/19/2019 Reviewed notes from the weekend. He did have an EGD that showed bleeding peptic ulcer disease. He is doing okay at this point. His wounds seem to be relatively stable. He does have E coli in the wounds. At this point, I would recommend continue local wound care with Vashe wet-to-dry and Endo-Boots for the legs. Overall, I think he is stabilizing. His main issue was his bleeding ulcer. I think this is becoming stable and I think we can probably get him out of the ICU if okay with other consultants, but from a surgical point of view just continue local wound care. cc: Jim Galvez MD [facility]
[2019-06-19 06:48] LABS: CALCIUM 9.3 mg/dL (8.8-10.2); CREATININE 9.1 mg/dL (0.7-1.2); POTASSIUM 4.7 mmol/L (3.5-5.1)
--- NOTE | 2019-06-19 07:25 | PROGRESS NOTE ---
DATE: 06/19/2019 INTERVAL HISTORY: No acute events overnight. SUBJECTIVE: Mr. Rodrigez is sitting in the chair by his bed. 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 He denies any chest pain or shortness of breath. OBJECTIVE: Current Vital Signs: Temperature of 98.7 degrees, pulse 94, respiratory rate 16, blood pressure 110/60. He is saturating 100% on room air. General: Does not appear in any acute distress. HEENT: Oral cavity is moist. He has bilateral conjunctival congestion, and he also has hearing ears. Lungs: Air entry bilaterally equal. No wheeze, rhonchi, crackles. Cardiovascular: S1, S2 normal. No murmur, rub, or gallop. Abdomen: Soft, nontender. Extremities: He has bilateral lower extremity edema extending up to thigh. He also has left upper arm AV fistula. Neurologic: He is alert and oriented x3. LABORATORY DATA: CBC suggestive of leukocytosis, stable hemoglobin, normal platelet count. His BMP is pending. ASSESSMENT AND PLAN: 1. Sepsis secondary to bilateral gluteal wounds due to Escherichia coli. Continue intravenous cefazolin and metronidazole as per Infectious Disease recommendation. I will appreciate long- term antibiotic plan. 2. Acute blood loss anemia due to nonsteroidal anti-inflammatory drugs-induced peptic ulcers affecting stomach and duodenum leading to upper gastrointestinal bleeding, status post 4 units of packed red blood cells and esophagogastroduodenoscopy. His hemoglobin appears to be stable at the moment. Continue pantoprazole twice daily for at least 3 months, and outpatient Gastroenterology followup for repeat endoscopy after 3 months. 3. End-stage renal disease, on Wednesday, Wednesday, Wednesday hemodialysis. I will follow up with potassium. His hyperkalemia was treated yesterday. 4. Chronic pain secondary to nephrogenic systemic fibrosis. He was counseled about not using nonsteroidal anti-inflammatory drugs, and I will resume his home medications once reconciled. 5. Disposition. The patient appears to be hemodynamically stable. My plan would be to transfer him to medical floor today. Plan of care discussed with him. His questions have been answered. cc: Isiah Morrison MD
[2019-06-19] MEDS: PROTONIX PO SCH ×2 (08:23→21:01)
[2019-06-19] MEDS ORDERED: NS 2,000 ML MISC PRN (08:29)
[2019-06-19] MEDS ORDERED: NEPHRO-VITE PO SCH (09:00)
[2019-06-19 11:03] LABS: ALBUMIN 3.1 g/dL (3.5-5.0); CALCIUM 9.4 mg/dL (8.8-10.2); CREATININE 6.9 mg/dL (0.7-1.2); PHOSPHORUS 4.4 mg/dL (2.7-4.5); POTASSIUM 4.1 mmol/L (3.5-5.1)
--- NOTE | 2019-06-19 15:34 | INFECTIOUS DISEASE PROGRESS NO ---
DATE: 06/19/2019 PRESENT ILLNESS: The patient has bilateral infected buttock decubitus ulcers. E coli was isolated from the ulcer. The ulcer has a foul odor and I suspect that in addition to E coli, the patient may have an anaerobic infection as well. MEDICATIONS: The patient gets Ancef 1 g after each dialysis and the patient is on Flagyl by mouth. PHYSICAL EXAMINATION: Vital Signs: Temperature is 98.2 degrees, pulse 94, respirations 18, blood pressure 110/60. General: This is an ill-appearing, middle-aged male. He seems to be in pain. Head/eyes/ears/nose/throat: He can hear my spoken words and see near objects. He has a white coating on his tongue. Neck: No pain with movement. Lungs: Clear to auscultation. Cardiovascular: Heart rate is rapid and for the most part it is regular but for a short period of time the rate is irregular. Abdomen: Soft and nontender. Extremities: Both legs have Unna wraps on them. The patient has a functioning AV fistula of the left arm through which he is getting dialyzed now. Neurologic: The patient is lethargic. He did answer my questions and he did move his arms when I requested him to. LAB AND X-RAY: CBC shows a white count of 15,110, hemoglobin 8.1, platelet count 207,000. Creatinine is 9.1. GFR is 6. As mentioned above, E coli was isolated from both buttock wounds. There is no new radiographic study. ASSESSMENT AND PLAN: The patient has bilateral buttock infected decubitus ulcers. My plan is to continue Ancef 1 g IV after each dialysis and p.o. Flagyl 500 mg every 8 hours. The patient has oral candidiasis and I offered him to take nystatin swish and swallow, but he refused it. I told him to tell me any time that he wants to start it. COMORBIDITIES: The patient has end-stage renal disease. He is on hemodialysis. 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 cc: Justino Smith MD
[2019-06-19] MEDS ORDERED: KEFZOL 1 GM/D5W 1 GM/50 ML IVPB IV ONE (17:00)
--- NOTE | 2019-06-19 18:08 | GASTROENTEROLOGY PROGRESS NOTE ---
DATE: 06/19/2019 SUBJECTIVE: Patient resting in bed. He is getting dialyzed. He denies any nausea, vomiting, vomiting blood, denies any blood in the stools. He has chronic lower extremity edema which he attributes to nephrogenic systemic fibrosis. OBJECTIVE: Vitals: Temperature of 98.2, pulse of 94, respiratory rate 18, blood pressure 110/60, saturating 100% on room air. Body weight of 158 pounds, BMI 21.4 kg/m2. General: Mr. Hussain Rodrigez is thinly built, lying in bed, in no acute distress. He is getting dialysis. HEENT: Positive pallor. No icterus. Neck: Supple. Abdomen: Soft, nondistended. No guarding. Extremities: Bilateral chronic lower extremity edema noted. Neurological: Alert, awake and oriented x3. LABORATORY DATA: Hemoglobin and hematocrit is 8.1 and 25.8, white count of 15.1, platelet count of 207. Sodium 135, potassium 4.7, chloride 93, BUN 114, creatinine 9.1, glucose 109, calcium is 9.3. His liver enzymes done on 06/17/2019 showed AST 56, ALT 31, alkaline phosphatase 81, total protein 6.4, albumin of 2.7, total bilirubin is 0.43. Wound culture from the right buttock showing E coli. Blood culture x2 negative at 48 hours on 06/16/2019. Stool for C difficile toxin was negative on 06/15/2019. IMAGING: Chest x-ray done on 06/16/2019 showed no pneumonia. IMPRESSION AND PLAN: 1. Bleeding peptic ulcer disease. Continue PPIs 40 mg p.o. b.i.d. for 3 months and repeat EGD in 3 months. Check for healing. Avoid any NSAIDs. 2. Anemia. Continue to watch for now, transfuse as needed. We will start on Iron-C b.i.d., and he is already on multivitamin once daily. 3. Infected decubitus ulcers. He is on antibiotics per primary team. 4. End-stage renal disease on hemodialysis. 5. Bilateral decubitus ulcers in the buttocks growing Escherichia coli. He is on antibiotics. 6. Sepsis likely secondary to above. He is on antibiotics. 7. Esophagogastroduodenoscopy done by Dr. Brennan showed mild esophagitis, gastritis, duodenitis, and 3 clean-based ulcers 2 in antrum and 1 in the duodenal bulb likely secondary to NSAID use as patient is using Advil. 8. Chronic pain secondary to nephrogenic systemic fibrosis. Aware. 9. The patient will follow in the clinic in 3 months after discharge for follow- up EGD with Dr. Brennan. I will start him on iron C b.i.d. and Nephro-Trinity once daily. 10. We will sign off at this time. Please call us if any further questions. The above plans were discussed with the patient, and all questions answered. Please call us if any further questions. cc: MD Luisito Henderson MD Dr. Patel MTDD
--- NOTE | 2019-06-19 20:47 | NEPHROLOGY PROGRESS NOTE ---
DATE: 06/19/2019 SUBJECTIVE: He is sitting up in the dialysis chair on the dialysis treatment. He states his pain is improved. No particular shortness of breath. No nausea or vomiting. No further melena. OBJECTIVE: Vital Signs: Blood pressure 110/60, heart rate 94, respirations 18, afebrile. General: No acute distress. Skin: Warm and dry. Neck: Neck veins are not visible. Heart: Regular and distant. Lungs: Equal. Abdomen: Soft, nontender. Extremities: 2 to 3+ edema, woody. Wounds are not examined. IMPRESSION: 1. Chronic kidney disease 5D. He is undergoing dialysis currently. 2-K bath. 3 to 4 L ultrafiltration as his blood pressure allows. Electrolytes/acid base in target. 2. Anemia, stable following transfusion. 3. Decubitus ulcers. He is on intravenous antibiotics and has wound care. cc: Luisito Delaney MD
[2019-06-19] MEDS ORDERED: ICAR-C PO SCH (21:00)
[2019-06-20] MEDS: DILAUDID IV PRN ×2 (02:52→06:15)
[2019-06-20] MEDS: FLAGYL PO SCH (04:59)
[2019-06-20 06:10] LABS: CALCIUM 9.1 mg/dL (8.8-10.2); CREATININE 5.8 mg/dL (0.7-1.2); POTASSIUM 3.8 mmol/L (3.5-5.1)
[2019-06-20] MEDS ORDERED: PERCOCET-10 PO SCH (07:00)
[2019-06-20] MEDS ORDERED: PERIACTIN PO PRN (08:21)
[2019-06-20 08:42] VITALS: BP 100/66
[2019-06-20] MEDS: DAKIN'S 0.25% SOLN TOP SCH (11:17)
--- NOTE | 2019-06-20 11:54 | NEPHROLOGY PROGRESS NOTE ---
DATE: 06/20/2019 SUBJECTIVE: He states he did not sleep. Otherwise he is awake and alert this morning. Pain and other symptoms are at baseline. OBJECTIVE: Vital Signs: Blood pressure 98/60, heart rate 81, respirations 17, afebrile. Generally: No acute distress. Chronically ill. Skin: Warm and dry. Neck: Neck veins are not appreciated. Heart: Regular. Lungs: Equal. No crackles. Abdomen: Soft. Extremities: 2 to 3+ edema. No changes. IMPRESSION: 1. Upper GI bleeding. Hemoglobin is stable at 8.1. We will continue to manage his anemia as an outpatient using POOL and IV iron as appropriate. 2. CKD 5D. He had his routine dialysis yesterday. 3. Chronic pain. I will restart his routine scheduled oxycodone dose. 4. Okay for discharge from my perspective. cc: Luisito Delaney MD
--- NOTE | 2019-06-21 06:54 | DISCHARGE SUMMARY ---
ADMISSION DATE: 06/15/2019 DISCHARGE DATE: 06/20/2019 DISCHARGE DISPOSITION: Home with family. DISCHARGE CONDITION: Hemodynamically stable. He has not been having any bloody bowel movement. He is tolerating diet well without nausea and vomiting. I had a discussion with him about avoiding NSAID, having follow up with production miner as well as pain doctor, avoiding all the medications toxic to stomach mucosa. I answered all of his questions. CONSULTATION DURING HOSPITAL ADMISSION: Nephrology, Dr. Delaney. Gastroenterology, Dr. Brennan. Infectious Disease, Dr. Smith, as well as surgeon, Dr. Galvez. DISCHARGE DIAGNOSES: 1. Sepsis secondary to bilateral gluteal wound due to Escherichia coli. 2. Acute blood loss anemia due to nonsteroidal anti-inflammatory drugs induced peptic ulcers affecting stomach and duodenum. 3. Acute upper gastrointestinal bleed requiring 4 packed RBCs. 4. Symptomatic anemia. 5. Hypotension on presentation because of acute blood loss anemia. 6. Hyperkalemia related to end-stage renal disease. OTHER DIAGNOSIS: 1. End-stage renal disease on Wednesday, Wednesday, Wednesday hemodialysis. 2. 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 3. Y History of chronic pain related to nephrogenic systemic fibrosis. 4. History of anxiety. 5. Prior history of GI bleed. DISCHARGE MEDICATIONS: 1. He is supposed to get cefazolin 1 g every 48 hours after dialysis for 2 weeks. Nephrology team has been informed about this. 2. Guaifenesin 400 mg every 4 hours for cough as needed. 3. Morphine extended release 60 mg b.i.d. 4. Oxycodone 30 mg every 12 hours. 5. Cyproheptadine 5 mg b.i.d. as needed for hives. 6. Fentanyl 1 dose sublingual 4 times a day. 7. Metronidazole 500 mg every 8 hours, 40 tablets have been prescribed. 8. Ciprofloxacin dexamethasone otic suspension 4 drops left ear twice a day. 9. Pantoprazole 40 mg b.i.d., 180 tablets have been prescribed. 10. Ondansetron 4 mg every 6 hours as needed for nausea and vomiting. VITALS: At the time of discharge temperature 97.3 degrees, pulse 71, respiratory 13, blood pressure 100/66, saturating 100% room air. PHYSICAL EXAMINATION: General: Does not appear in acute distress. HEENT: Oral cavity is moist. Lungs: Air entry bilaterally equal. No wheeze, rhonchi, crackles. Cardiovascular: S1, S2 normal. Regular. No murmur, rub, or gallop. Abdomen: Soft, nontender. No hepatosplenomegaly. He has left arm AV fistula. He has bilateral lower extremity edema extending up to knee level and chronic appearing wounds. He also has bilateral gluteal wounds. He was alert and oriented x3. 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 He is hearing impaired. He is able to move bilateral upper extremities and bilateral lower extremities with assistance. SIGNIFICANT LABS DURING HOSPITAL ADMISSION AND DISCHARGE: WBC on admission was 22,000 which improved to 15,000 at the time of discharge. Hemoglobin was 8.1. His platelet count was 207,000. He did have BUN of 58 and creatinine of 5.8 at the time of discharge. His phosphorus was 5. Significant micro, wound from bilateral buttock was growing Escherichia coli which was sensitive to cefazolin. He received 4 units of blood transfusion during this hospital admission. SIGNIFICANT IMAGING DURING HOSPITAL ADMISSION: Chest x-ray did not have any pneumonia. Electrocardiogram suggests sinus tachycardia with 1st degree AV block. HOSPITAL COURSE SUMMARY: Mr. 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 He was also seeing his surgeon doctor outpatient for his bilateral gluteal wound. Considering his extremely low blood pressure around 80/40 and his blood count off hemoglobin of less than 5, he was transferred to [facility] ICU. He was started on intravenous fluids and blood transfusion were given. He has had multiple bowel movements which looked tarry and stool occult blood test was positive. He was also started on intravenous pantoprazole. The patient admitted taking naproxen and other NSAID as pain medications for his chronic pain. He underwent EGD which had on June 17 detected single nonbleeding and clean based ulcer of 3 to 5 mm in duodenal bulb with mild duodenal inflammation, 2 nonbleeding and clean based greater ulcers of 5 to 9 mm in size in the pre-pyloric region of the stomach with mild gastritis. He was treated with intravenous Protonix after which his bleeding stops. His blood count was also stable after blood transfusion. It was decided to discharge patient on oral pantoprazole and have outpatient GI followup. He was counseled about NSAID induced peptic ulcer disease. He was also counseled to follow up with the pain doctor for better management of his pain. More than 30 minutes spent in discharging the patient. All of his questions were answered. He was supposed to follow up with Dr. Galvez for his bilateral gluteal wounds. cc: Isiah Morrison MD
--- NOTE | 2019-06-21 13:39 | DISCHARGE SUMMARY ---
ADMISSION DATE: 06/15/2019 DISCHARGE DATE: 06/20/2019 DISCHARGE DISPOSITION: Home with family. DISCHARGE CONDITION: Hemodynamically stable. He is able to tolerate oral diet. He has not been having bloody bowel movement. His hemoglobin has been stable. DISCHARGE DIAGNOSES: 1. Sepsis from bilateral gluteal wounds. 2. Acute blood loss anemia due to upper gastrointestinal bleed due to nonsteroidal anti- inflammatory drug use. 3. Hypovolemic shock due to acute blood loss anemia. 4. Bilateral gluteal region wound infected with Escherichia coli. OTHER DIAGNOSES: 1. History of end-stage renal disease on hemodialysis through left arm AV fistula. 2. History of nephrogenic systemic fibrosis. 3. History of chronic pain because of nephrogenic systemic fibrosis. 4. Poor physical condition due to chronic pain leading to bilateral gluteal wounds. 5. End-stage renal disease on Wednesday, Wednesday, Wednesday hemodialysis. 6. History of anxiety. 7. 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 VITALS AT THE TIME OF DISCHARGE: Temperature 97.3 degrees, pulse 91, respiratory 13, blood pressure 100/66 saturating 100% room air. PHYSICAL EXAMINATION: Not in acute distress. HEENT: Oral cavity is moist. He has blindness especially affecting left eye. He has hearing impairment. LUNGS: No wheeze or crackles. HEART: Normal rhythm. Abdomen: Soft, nontender. Extremity: He does have bilateral lower extremity edema. SIGNIFICANT LAB: On discharge WBC 50765, hemoglobin 8.1, platelet count 201,000, BUN 58, creatinine 5.8 significant micro wound culture from the left and right buttock was growing Escherichia coli which was sensitive to first generation cephalosporin. IMAGING: During hospital admission chest x-ray did not have pneumonia. HOSPITAL COURSE SUMMARY: Mr. Rodrigez is a 48-year-old man who was transferred from outside hospital for hypotension with systolic blood pressure at 80 and a low hemoglobin of 5.4. He also was complaining of black tarry bowel movements and weakness and confusion. It was thought that his acute blood loss anemia related to GI blood use since the patient had attested to be taking nonsteroidal anti-inflammatory drugs for his chronic pain. He underwent EGD which had detected gastric duodenal ulcer, though it read they were not actively bleeding. He was discharged. He was initially treated with a blood transfusion and he required 4 units and intravenous Protonix following which his blood count was stable. EGD- the patient was advised to take proton pump inhibitors twice a day for at least 3 months. He was also given antibiotic prescription for his wound and have outpatient surgical team follow-up. DISCHARGE MEDICATION: 1. Cefazolin 1 g after each dialysis for 2 weeks. Nephrology team was consulted and they would set this up. 2. Guaifenesin 40 mg every 4 hours. 3. Morphine extended release 60 mg b.i.d. 4. Oxycodone 30 mg every 12 hours. 5. Cyproheptadine 4 mg b.i.d. as needed. 6. Fentanyl spray 4 times a day. 7. Metronidazole 500 mg every 8 hours, 40 tablets have been prescribed. 8. Pantoprazole 40 mg b.i.d. 9. Ondansetron 4 mg every 6 hours as needed for nausea and vomiting. TIME SPENT: More than 30 minutes spent discharging the patient. cc: Isiah Morrison MD
== END 2019-06-20 11:51 | disposition home health service (06) | DRG 871 ==
LOC: DIRADM 19:22 → SUATTDRO 19:22 → ICU 06-16 00:47 → 1N 06-19 10:34
PROVIDERS: ATTEND Internal Medicine

== ENCOUNTER 2019-07-04 17:23 | Inpatient (IN) ==
[2019-07-04] MEDS ORDERED: NS 500 ML IV ONE (18:19)
--- NOTE | 2019-07-04 18:39 | ED EKG INTERP ---
This chart was entered by Lakeisah Jones Scribe, acting as scribe for Juan A Salazar MD. EKG Interpretation - EKG Time of EKG reading by physician:: 17:52 EKG Read and Signed by:: Juan A Salazar EKG Interpretation (*Must complete 3 of following elements*): Abnormal (non specific t wave abnormality) Rate: 99 Rhythm: sinus with 1st degree AV block [place]: normal [place] Interval: normal Attestation - Physician/ CARLIN Attestation Patient care was provided by Advanced Practice Provider:: No The physician spent face to face time with patient:: No Advanced Practice Provider documentation review:: Supervising physician onsite and consulted in the evaluation and care of this patient. The physician did not have a face to face encounter with the patient. This chart was documented by the indicated scribe, (Lakeisha Jones Scribe) and accurately reflects the services I performed and decisions made by me, Juan A Salazar MD, as attested by the provider's signature.
--- NOTE | 2019-07-04 18:41 | Diag Imaging Result Doc PS360 ---
EXAM: CHEST-2 VIEWS HISTORY: FEVER TECHNIQUE: Chest two views COMPARISON: 06/16/2019 FINDINGS: The lungs are well expanded. The heart is not enlarged. The vessels are not distended. There are no infiltrates. No pleural effusions. IMPRESSION: No pneumonia Electronically signed by Scar Jean 07/04/2019 6:38 PM
[2019-07-04 19:50] LABS: BASO# 0.05 X1000 (0.0-0.2); BASO% 0.8 % (0.0-0.8); EOS# 0.18 X1000 (0.0-0.7); EOS% 2.8 % (0.0-10.0); HEMATOCRIT 29.7 % (42.0-52.0); HEMOGLOBIN 8.8 g/dL (14.0-18.0); LYMPH% 16.9 % (20.5-51.1); MCH 28.4 PG (27-31); MCHC 29.6 g/dL (33-37); MCV 95.8 FL (81-99); MONO# 0.77 X1000 (0.11-0.59); MONO% 11.9 % (1.7-9.3); MPV 9.2 FL (7.4-10.4); NEUT# 4.39 X1000 (1.4-6.5); NEUT% 67.6 % (42.2-75.2); PLT 360 X1000 (130-400); RDW 16.9 % (11.5-14.5); WBC 6.49 X1000 (4.8-10.8)
[2019-07-04 20:02] LABS: AGAP 16; ALB/GLOB RATIO 0.6; ALBUMIN 3.1 g/dL (3.5-5.0); ALKALINE PHOSPHATASE 132 U/L (32-122); BUN 28 mg/dL (8-22); CALCIUM 9.3 mg/dL (8.8-10.2); CHLORIDE 91 mmol/L (98-107); COSMO 271; CREATININE 5.6 mg/dL (0.7-1.2); ESTIMATED GFR 11; GLUCOSE 116 mg/dL (70-104); GOT 28 U/L (10-34); GPT < 5 U/L (10-44); MAGNESIUM 2.3 mg/dL (1.5-2.7); POTASSIUM 3.5 mmol/L (3.5-5.1); SODIUM 132 mmol/L (136-145); TCO2 25 mmol/L (25-35); TOTAL PROTEIN 8.4 g/dL (6.3-8.3)
[2019-07-04 20:06] LABS: INR 1.64; PROTIME 19.8 Seconds (11.0-16.0)
[2019-07-04 20:07] LABS: PTT 45.8 Seconds (22.3-41.8)
[2019-07-04] MEDS ORDERED: MORPHINE IV ONE (20:58)
--- NOTE | 2019-07-04 21:50 | Diag Imaging Result Doc PS360 ---
EXAM: CT HEAD W/O CONTRAST HISTORY: AMS TECHNIQUE: CT head without contrast COMPARISON: 04/24/2015 FINDINGS: No parenchymal hemorrhage. No epidural or subdural hematoma. No subarachnoid hemorrhage. No mass identified on this noncontrasted exam. No hydrocephalus. No sinus opacification. Prior surgery to the left mastoid sinus. IMPRESSION: No hemorrhage. Negative brain CT without contrast. This exam was performed using automated exposure control, adjustment of mA or kV according to patient size, and/or use of iterative reconstruction technique. Electronically signed by Scar Jean 07/04/2019 9:47 PM
--- NOTE | 2019-07-04 22:03 | EKG Report ---
Test Performed on : 07/04/2019 5:52:02 PM Test Reason : FEVER Blood Pressure : / mmHG Vent. Rate : 099 BPM Atrial Rate : 099 BPM P-R Int : 240 ms QRS Dur : 092 ms QT Int : 348 ms P-R-T Axes : 095 088 025 degrees QTc Int : 446 ms Sinus rhythm. with 1st degree AV block. Nonspecific T wave abnormality Abnormal ECG When compared with ECG of 16-JUN-2019 04:48, No significant change was found Unconfirmed Result
--- NOTE | 2019-07-04 22:31 | PROVIDER DOCUMENTATION ---
This chart was entered by Lakeisha Jones Scribe, acting as scribe for Cortes Santiago MD. HPI-General Adult - General Chief Complaint: Fever Stated Complaint: FEVER Time Seen by Provider: 07/04/19 17:57 Source: patient Allergies/Adverse Reactions: Patient Allergies Allergy/AdvReac Type Severity Reaction Status Date / Time ampicillin Allergy HIVES Verified 04/24/15 13:01 Home Medications: Home Medication List Medication Instructions Recorded Confirmed Last Taken Type Cyproheptadine [Periactin] 4 mg PO BID PRN 02/17/14 06/19/19 04/22/15 History Fentanyl [Subsys] 1 dose SL 4XDAY 04/21/15 04/24/15 04/21/15 15:30 History Guaifenesin [Refenesen] 1 dose PO Q4HR 04/21/15 04/24/15 04/22/15 History Morphine E.r. [Ms Contin] 1 dose PO BID 04/21/15 04/24/15 04/22/15 History Ciproflox/Dexameth Otic Susp 4 drop LEFT EAR BID #1 bottle 04/22/15 04/24/15 Unknown Rx [Ciprodex Otic Suspension] Ondansetron [Zofran] 4 mg PO Q6H PRN PRN #20 tablet 04/24/15 Unknown Rx Oxycodone HCl 30 mg PO Q12H 06/19/19 06/19/19 Unknown History Metronidazole [Flagyl] 500 mg PO Q8HR #40 tab 06/20/19 Unknown Rx Pantoprazole [Protonix] 40 mg PO BID #180 tab 06/20/19 Unknown Rx - History of Present Illness -Gen Adult Nature of Presenting Problems: pt is a 48 yr old male presenting with 1 week complaint of diarrhea, appetite loss, chills and increasing confusion. pt was admitted here 06/15/19-06/20/19 for sepsis, Ecoli and bleeding gastric ulcer. pt reports he is currently on flagyl and Ancef. pt reports today he has had increased difficulty concentrating and confusion and weakness. Location of Pain/Injury: reports: none Pain Radiation: reports: no radiation Quality of Pain: reports: none Severity: reports: moderate Onset/Duration: reports: 1 week ago Timing: reports: getting worse Context/Activities at Onset: reports: rest Modifying Factors: improves with: nothing Associated Symptoms: reports: diarrhea, fatigue, fever/chills, loss of appetite, malaise, weakness. denies: genitourinary problems, nausea, shortness of breath, vomiting Similar Symptoms Previously?: Yes Recently seen or treated by another doctor?: Yes Review of Systems - Adult - REVIEW OF SYSTEMS - ADULT Constitutional: reports: chills, fever, fatique Eyes: reports: no symptoms reported Ears, Nose, Mouth & Throat: reports: no symptoms reported Cardiovascular: denies: chest pain, palpitations, syncope Respiratory: denies: cough, shortness of breath Gastrointestinal: reports: diarrhea. denies: abdominal pain, nausea, rectal bleeding, vomiting Genitourinary: reports: no symptoms reported Musculoskeletal: reports: muscle weakness. denies: back pain, joint pain Integumentary: reports: no symptoms reported Neurological: denies: dizziness/vertigo, headache/migraines, syncope Psychiatric: reports: no symptoms reported Endocrine: reports: no symptoms reported Hematologic/Lymphatic: reports: no symptoms reported Allergic/Immunologic: reports: no symptoms reported All Other Systems: Reviewed and Negative Past History - Adult - PAST MEDICAL HISTORY-ADULT Review of Records: reports: Old Records Reviewed, Nursing Assessment Review, Medications Reviewed, Social history reviewed & non-contributory. Major Childhood Illnesses: reports: denies history Cardiovascular: reports: denies history Respiratory: reports: denies history Gastrointestinal: reports: denies history Obstetrical/Gynecological: reports: denies history Genitourinary: reports: dialysis Musculoskeletal: reports: denies history Neurological: reports: TIA Endocrine/Immune: reports: thyroid disorder Other Conditions: reports: denies history - PRIOR SURGERIES/PROCEDURES Surgical/Procedure History: reports: tonsillectomy, other (fistula, 2 kidney transplants and removal, parathyroidectomy) - IMMUNIZATION STATUS Childhood Immunizations: See Nurse Assessment Flu Vaccine: See Nurse Assessment - FAMILY HISTORY Family History: reviewed, not pertinent - SOCIAL HISTORY Living Situation: family Physical Exam-General - PHYSICAL EXAM-ADULT Initial Vital Signs Reviewed: Yes - CONSTITUTIONAL General Appearance: no apparent distress, slow to respond - EYES Eyes: PERRL/EOMI - HEAD, EARS, NOSE, MOUTH & THROAT HENMT: normocephalic/atraumatic, moist mucous membranes - NECK Neck: non-tender, full range of motion, supple, normal inspection - RESPIRATORY Respiratory: chest non-tender, lungs clear, normal breath sounds - CARDIOVASCULAR Cardiovascular: normal peripheral pulses, regular rate, rhythm, no edema - GASTROINTESTINAL (ABDOMEN) Abdominal Exam: normal bowel sounds, non tender, soft - LYMPHATIC Lymphatic: no adenopathy - MUSCULOSKELETAL Extremity: other (bilateral STEPHAN boots) - SKIN Integumentary: normal color, normal turgor, warm/dry - NEUROLOGIC Neurologic: grossly normal - PSYCHIATRIC Psych/Mental Status: normal mood/affect Progress - PLAN OF CARE/RESULTS Progress/Plan/Lab Results: Vital Signs - 8 hr 07/04/19 17:36 Temperature 97.9 F Pulse Rate 101 H Respiratory Rate 18 Blood Pressure 91/39 O2 Sat by Pulse Oximetry 100 Orders Category Date Time Status Cardiac Monitoring DIRECTED Care 07/04/19 17:55 Active IV Insertion ORDERED Care 07/04/19 17:55 Active Notify MD of + Sepsis Screen NOW Care 07/04/19 17:55 Active Notify Physician As Ordered Care 07/04/19 17:55 Active cxr [CHEST-2 VIEWS] [RAD] Stat Exams 07/04/19 17:59 Ordered BLOOD CULTURE [BLDCUL] Stat Lab 07/04/19 17:55 Uncollected CBC WITH DIFF [HEME] Stat Lab 07/04/19 17:55 Uncollected CK PROFILE [SP CHEM] Stat Lab 07/04/19 17:55 Uncollected COMPREHENSIVE METABOLIC PANEL [CHEM] Stat Lab 07/04/19 17:55 Uncollected LACTATE, PLASMA [CHEM] Q3H Lab 07/04/19 18:00 Uncollected LACTATE, PLASMA [CHEM] Q3H Lab 07/04/19 21:00 Uncollected LACTATE, PLASMA [CHEM] Q3H Lab 07/05/19 00:00 Uncollected PROTIME WITH INR [COAG] Stat Lab 07/04/19 17:55 Uncollected PTT [COAG] Stat Lab 07/04/19 17:55 Uncollected TROPONIN T Stat Lab 07/04/19 17:55 Uncollected URINALYSIS W/POSS RFLX CULT [URINALYSIS] Stat Lab 07/04/19 17:55 Uncollected Oxygen Device Stat Oth 07/04/19 17:55 Active Result Diagrams: 07/04/19 19:20 07/04/19 19:20 - REASSESSMENT Reassessment #1 Time Reassessed: 22:25 Status: other (REVIEW OF IMAGE UNREMARKABLE AND WELL LABS WITH NO ACUTE FINDING. I HAVE SPOKE TO HOSPITALIST AND WE WILL GO AHEAD AND DO OBSERVATION FOR THIS GENTLEMENT WHO WAS RECENTLY ADMITED TO ICU FOR E. COLI SEPSIS AND FOUND TO HAVE GI ULCER.) - XRAY 1 XRAY Study: Chest ( [facility] - [address], [address], [place] [address] [place] [id number] Department of Imaging Patient: LUCIANA HOLCOMBADM Date: 07/04/19MR#: [id number] : 1970ADM Status: PRE ERAcct#: [id number] Age/Sex: 48/MRoom/Bed: Loc: ED Ordering Physician: Cortes Santiago MD Family Physician: Jossie Esparza Reason for Procedure: FEVER ___ Signed EXAM: CHEST-2 VIEWS HISTORY: FEVER TECHNIQUE: Chest two views COMPARISON: 06/16/2019 FINDINGS: The lungs are well expanded. The heart is not enlarged. The vessels are not distended. There are no infiltrates. No pleural effusions. IMPRESSION: No pneumonia Electronically signed by Scar Jean 07/04/2019 6:38 PM 07/04/191837 Interpreting Physician: Scar Jean MD Dictated Date/Time: 07/04/191837 cc: Cortes Santiago MD; Jossie Esparza) - CT/MRI 1 CT Study: Head ([facility] - [address], [address], [place] [address] [address] Department of Imaging Patient: LUCIANA HOLCOMB WADM Date: 07/04/19MR#: [id number] : 1970ADM [id number] Age/Sex: 48/MRoom/Bed: Loc: ED Ordering Physician: Cortes Santiago MD Family Physician: Jossie Esparza Reason for Procedure: AMS ___ Signed EXAM: CT HEAD W/O CONTRAST HISTORY: AMS TECHNIQUE: CT head without contrast COMPARISON: 04/24/2015 FINDINGS: No parenchymal hemorrhage. No epidural or subdural hematoma. No subarachnoid hemorrhage. No mass identified on this noncontrasted exam. No hydrocephalus. No sinus opacification. Prior surgery to the left mastoid sinus. IMPRESSION: No hemorrhage. Negative brain CT without contrast. This exam was performed using automated exposure control, adjustment of mA or kV according to patient size, and/or use of iterative reconstruction technique. Electronically signed by Scar Jean 07/04/2019 9:47 PM 07/04/192146 Interpreting Physician: Scar Jean MD Dictated Date/Time: 07/04/192144 cc: Cortes Santiago MD; Jossie Esparza) Departure - Departure Date of Disposition Decision: 07/04/19 Time of Disposition Decision: 22:30 DIAGNOSIS: AMS (altered mental status) DIAGNOSIS: (Ruled Out): Altered breathing pattern Disposition: ADMITTED INPATIENT 09 Certified Medical Emergency: Emergent Condition: Fair Referrals and Follow-Ups: Jossie Esparza CRNP [Primary Care Provider] - - Critical Care Note This patient required my direct & personal management of CC.: No Attestation - Physician/ CARLIN Attestation Patient care was provided by Advanced Practice Provider:: No The physician spent face to face time with patient:: Yes Advanced Practice Provider documentation review:: Supervising physician onsite and consulted in the evaluation and care of this patient. The physician did have a face to face encounter with the patient. This chart was documented by the indicated scribe, (Lakeisha Jones, Stanislaw) and accurately reflects the services I performed and decisions made by me, Cortes Santiago MD, as attested by the provider's signature.
[2019-07-05] MEDS ORDERED: OXY IR PO SCH (01:00)
--- NOTE | 2019-07-05 03:05 | HISTORY AND PHYSICAL ---
PRIMARY CARE PROVIDER: CHARLOTTE Lopez. WELDER SETTER ELECTRON BEAM MACHINE: Luisito Delaney MD. CHIEF COMPLAINT: Fever at doctor's office, and generalized weakness, diarrhea and gas. HISTORY OF PRESENT ILLNESS: Mr. Rodrigez is a 48-year-old male with a past medical history most notable for end-stage renal disease on hemodialysis Wednesday, Wednesday, Fridays, nephrotic syndrome, fibrosis, anxiety, and Alport syndrome. He had recently been discharged from our service on 06/20/2019 for bilateral sacral wound infection. He was placed on Ancef after his hemodialysis session, and finished his Flagyl today. He reported he went to his doctor's office today, he had a fever and some low blood cell counts, and also reported odd gas with a little bit of diarrhea, no appetite, lethargy. Workup in the ED showed a hemoglobin and hematocrit of 8 and 29, which is an improvement from his last discharge. Sodium of 132, BUN of 28, and creatinine of 5.6. We will admit him to the medical floor, watch his blood counts closely. He does not report any hematemesis, bright red or dark tarry stools. No headache or chills. No chest pain. No shortness of breath. PAST MEDICAL HISTORY: 1. End-stage renal disease on hemodialysis Wednesday, Wednesday, Wednesday. 2. Nephrotic systemic fibrosis. 3. Chronic pain syndrome. 4. Anxiety. 5. 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 He does have in a right hearing aid, and kidney disease. 6. Anemia. PAST SURGICAL HISTORY: 1. Left forearm fistula. 2. PermCath placement and removal. 3. Nasal surgery. 4. Tonsillectomy and adenoidectomy. 5. Kidney transplant x2. 6. Parathyroidectomy. 7. Left ear surgery. SOCIAL HISTORY: No alcohol, tobacco or illicit drug use. FAMILY HISTORY: Positive for pancreatic cancer and diabetes mellitus. ALLERGIES: To ampicillin. HOME MEDICATIONS: Currently being compiled, they are not consistent with his last discharge on 06/20/2019. PHYSICAL EXAMINATION: VITAL SIGNS: Temperature is 98.2 degrees, heart rate 104, respirations 18, blood pressure 95/50, O2 is 100% on room air. GENERAL: Mr. Rodrigez is a pleasant 48-year-old male who is sitting up in his wheelchair in the ED in no acute distress. HEENT: Atraumatic, normocephalic. PERRL. NECK: Supple. Trachea midline. CARDIOVASCULAR: S1, S2 appreciated. No murmurs, gallops or rubs noted. RESPIRATORY: Lung sounds clear bilaterally. GI: Abdomen is flat, soft, nontender, nondistended. Positive bowel sounds x4 quadrants. EXTREMITIES: He does have some bilateral lower extremity edema. Both lower extremities are wrapped in an Unna boot. SKIN: He does report 2 wounds on his bilateral buttocks, was not able to assess those as the patient was sitting up in a wheelchair. NEUROLOGIC: He is awake, alert, oriented x4. Follows commands. Answers all questions appropriately. ASSESSMENT AND PLAN: 1. Reported fever, however, the patient has been afebrile since admission. Reported 100.8 I believe at the doctor's office. We will continue with p.r.n. Tylenol. 2. Recent GI bleed with anemia. The patient's H H is more stable now. He does not report any hematemesis, bright red or dark tarry stools. We will continue to monitor his H H and hemodynamics closely. 3. Right and left buttock wounds. We will consult Wound Care. He had just finished his dose of Flagyl today, and is supposed to be on Ancef after hemodialysis. 4. Bilateral lower extremity wounds. They are currently wrapped in an Unna boots. Again we will consult Wound Care. 5. Diarrhea. We will rule out for anything infectious given that the patient has been on antibiotics. We will consult GI. 6. End-stage renal disease on hemodialysis Wednesday, Wednesday, Wednesday. We will consult Dr. Delaney for medical assistance. 7. Alport syndrome. Aware. 8. Chronic pain syndrome. We will continue home medications when correctly verified. 9. Further recommendation to follow physician evaluation, laboratory and diagnostic data. Dictated by CHARLOTTE Hauser for Vipul Day MD I have performed a face to face diagnostic evaluation. Labs/xrays- reviewed. Exam- Chest- clear, CV- regular. A/P- GI bleed, fever-Admit, Monitor H/H, GI cosult. Tylenol prn. Dr. Day cc: MD Luisito Mcclain MD Khurshid Yousuf, MD MTDD
[2019-07-05] MEDS ORDERED: HEPARIN IV PRN (06:43)
[2019-07-05] MEDS ORDERED: TIGHT: 0.2 ML/HR FOR DIALYSIS MISC PRN (06:43)
[2019-07-05] MEDS ORDERED: NS 2,000 ML MISC PRN (06:43)
--- NOTE | 2019-07-05 07:36 | Diag Imaging Result Doc PS360 ---
EXAM: CHEST-PORTABLE INDICATION: FU TECHNIQUE: One view COMPARISON: 07/04/2019 FINDINGS: The lungs remain grossly clear. No new consolidation is identified. Cardiac silhouette is stable. IMPRESSION: Stable chest. Electronically signed by Jose Tracy 07/05/2019 7:34 AM
[2019-07-05 07:52] LABS: BASO# 0.06 X1000 (0.0-0.2); BASO% 0.9 % (0.0-0.8); HEMATOCRIT 27.4 % (42.0-52.0); HEMOGLOBIN 8.1 g/dL (14.0-18.0); IMM GRAN# 0.02 X1000 (0.0-0.04); IMM GRAN% 0.3 % (0.0-0.5); LYMPH# 1.22 X1000 (1.2-3.4); LYMPH% 18.1 % (20.5-51.1); MCH 28.5 PG (27-31); MCHC 29.6 g/dL (33-37); MCV 96.5 FL (81-99); MONO# 0.92 X1000 (0.11-0.59); MONO% 13.6 % (1.7-9.3); MPV 9.5 FL (7.4-10.4); NEUT# 4.32 X1000 (1.4-6.5); NEUT% 64.1 % (42.2-75.2); PLT 358 X1000 (130-400); RBC 2.84 XMIL (4.7-6.1); RDW 16.7 % (11.5-14.5); WBC 6.74 X1000 (4.8-10.8)
[2019-07-05 07:57] LABS: AGAP 20; ALB/GLOB RATIO 0.6; ALBUMIN 2.9 g/dL (3.5-5.0); ALKALINE PHOSPHATASE 118 U/L (32-122); BUN 30 mg/dL (8-22); CALCIUM 8.6 mg/dL (8.8-10.2); CHLORIDE 94 mmol/L (98-107); COSMO 276; CREATININE 5.6 mg/dL (0.7-1.2); ESTIMATED GFR 11; GLUCOSE 102 mg/dL (70-104); GOT 30 U/L (10-34); GPT < 5 U/L (10-44); MAGNESIUM 2.3 mg/dL (1.5-2.7); POTASSIUM 3.7 mmol/L (3.5-5.1); SODIUM 135 mmol/L (136-145); TCO2 21 mmol/L (25-35); TOTAL BILIRUBIN 0.28 mg/dL (0.20-1.00); TOTAL PROTEIN 8.1 g/dL (6.3-8.3)
[2019-07-05] MEDS: OXY IR PO SCH ×4 (08:20→21:02)
[2019-07-05] MEDS: PROTONIX PO SCH ×2 (08:20→21:03)
[2019-07-05] MEDS: DILAUDID IV PRN ×3 (09:39→22:59)
[2019-07-05] MEDS ORDERED: DILAUDID IV ONE (10:11)
--- NOTE | 2019-07-05 13:55 | NEPHROLOGY CONSULTATION ---
DATE: 07/05/2019 Chief complaint: I went to my primary and she thought I needed to come here, HPI: Mr. Rodrigez is a 48-year-old white male known to our outpatient dialysis clinic for 15 + years with a history of ESRD, IgA nephropathy, hypertension, recent GI bleed, and metabolic bone disease. He was recently in the hospital for positive blood cultures in bilateral gluteal wounds and was treated with ancef after his dialysis treatment. He finished his Flagyl yesterday. His presenting hemoglobin last admission was 4 and he received a total of 4 units PRBCs. Yesterday he went to his primary care doctor where he was told that he had a fever of 100.8 and low blood counts. He reports diarrhea that is not dark and denies blood in urine. He denies shortness of breath, chest pain, and nausea and vomiting. Past medical history: chronic kidney disease stage 5D with Dialysis on Wednesday, Wednesday, and Wednesday, IGA nephropathy, hypertension, recent G.I. bleed, metabolic bone disease, chronic anemia, Alport syndrome with visual and hearing impairment, chronic pain syndrome. Past surgical history: left forearm fistula, permacath placement and removal, nasal surgery, tonsillectomy and adenoidectomy, can you transplant x2, parathyroidectomy, left ear surgery. social history: denies alcohol, tobacco, or illicit drug use. Family history: positive for pancreatic cancer and diabetes Mellitus. Allergies: ampicillin Home medications: Oxycodone IR, protonix, dialivite, calcitriol, Tums, naproxen, proteinex Review of systems: neurological: complains of lethargy, denies any altered orientation or confusion. Eyes: denies blurriness, dryness, or change in visual acuity. ENT: denies tinnitus or change in hearing. Integumentary: denies color change, rash or itch. Respiratory: denies shortness of breath orthopnea. Cardiovascular: denies palpitations or chest pain. GI: denies nausea and vomiting, or abdominal tenderness. Admits to diarrhea : denies any color change amount or odor in urine. Endocrine: denies excessive thirst or hunger. Musculoskeletal: denies any new pain or weakness in extremities. Labs: WBC 6.74, hemoglobin 8.1, hematocrit 27.4, platelet count 358, PT 19.8, INR 1.64, PTT 45.8, sodium 135, potassium 3.7, chloride 94, carbon dioxide 21, anion gap 20, BUN 30, creatinine 5.6, calcium 8.6, magnesium 2.3, protein 8.1, Albumin 2.9 Imaging: chest x-ray negative, CT head without contrast negative Physical exam: vitals. Temperature 97.6 pulse 100, respiratory rate 18, blood pressure 111/52, 02 sat 92% on room air. General: this is a chronically ill appearing white male sitting in wheelchair in no acute distress. HEENT: Normocephalic, a traumatic. Trachea midline. Mucous membranes moist. Skin: multiple scattered bruises among upper extremities. Slight jaundice appearance. Neck: supple, visible 6 cm JVD while sitting in wheelchair. Cardiovascular: S1,S2, S4. No murmur or gallop noted. Abdomen: soft, nontender nondistended. Bowel sounds hyperactive. : not inspected Extremities: 3+ pitting Edema to bilateral lower extremities with bandages in place to both ankles. Neurologic: alert, oriented to person, place, and time. Assessment and plan: Chronic kidney disease stage 5D. Patient will have his routine hemodialysis today. Electrolytes and acid base balance. In target. Blood pressure. In target. Chronic pain. We changed his oxy IR to his home dose and routine. Diarrhea. CDF antigen positive, CDF toxin assay negative. Negative for WBCs. cc: Luisito Delaney MD [facility]
[2019-07-05] MEDS: ZOFRAN IV PRN (16:41)
--- NOTE | 2019-07-05 17:44 | PROGRESS NOTE ---
DATE: 07/05/2019 SUBJECTIVE: The patient admitted early this morning. A patient of CHARLOTTE Salamanca. This is a 48-year-old male with a past medical history most notable for end-stage renal disease, hemodialysis Mondays, Wednesdays, and Fridays, nephrotic syndrome, fibrosis, anxiety, Alport's syndrome. Recently discharged from our service on 06/20/2019 for bilateral sacral wound infection. He was placed on Ancef after his hemodialysis session and finished his Flagyl today, the day of admission. Reported he went to his doctor's office, had fevers and some low blood counts. Reported odd gas and a little bit of diarrhea, no appetite, lethargy. Workup in the emergency room showed hemoglobin of 8, hematocrit 29, which had improved from last discharge. Sodium was 139, BUN 28, creatinine 5.6. Admitted him to the medical floor. Did not report any hematemesis, bright red blood, or dark tarry stools. No headache or chills. No chest pain. PAST MEDICAL HISTORY: 1. End-stage renal disease, on hemodialysis Mondays, Wednesdays, and Fridays. 2. Nephrotic systemic fibrosis. 3. Chronic pain syndrome. 4. Anxiety. 5. Alport's syndrome with visual impairment, hearing impairment. He does wear a right hearing aid and has kidney disease. 6. Anemia. PAST SURGICAL HISTORY: 1. Left forearm fistula. 2. PermCath placement and removal. 3. Nasal surgery. 4. Tonsillectomy and adenoidectomy. 5. Kidney transplant x2. 6. Parathyroidectomy. 7. Left ear surgery in the past. So admitted with fever, recent GI bleed, and anemia. He states he feels maybe a little better today. OBJECTIVE: Vital signs: Remains afebrile, temperature 97.6 degrees, pulse 100, respirations 18, blood pressure 111/52. HEENT: Pupils are equal and round. Lungs: Clear in all lung mccray. Cardiovascular: Regular rhythm and rate without murmur or S3. Abdomen: Soft. Skin: Warm and dry. Extremities: He does have pedal edema, 2+ in his ankles up to the mid islas. LABORATORY: Reviewed lab from yesterday. Lab from yesterday, white count 6,740, hematocrit 27, hemoglobin 8.1, platelet count 358,000. Sodium 135, potassium 3.7, chloride 94, BUN 30, creatinine 5.6. Transaminases unremarkable. Albumin was 2.9. ProTime is 19.8. His chest x-ray, stable chest. Head CT: No hemorrhage. Negative brain CT without contrast. ASSESSMENT AND PLAN: 1. Reported fever. However, the patient has been afebrile since admission. Reported temp of 100.8 degrees at the doctor's office. 2. Recent gastrointestinal bleed and anemia. Patient's hemoglobin and hematocrit are stable. Does not report any hematemesis, bright red blood, or dark tarry stools, so continue to watch his hemoglobin and hematocrit. 3. Right and left buttock wounds. Wound care is following. He just finished his dose of Flagyl. 4. Bilateral lower extremity wounds. Currently wrapped in Unna boots. Again, continue wound care. 5. Diarrhea. I do not see any evidence of infection. GI has been asked to see. 6. End-stage renal disease, on hemodialysis Mondays, Wednesdays, and Wednesday. Dr. Delaney is involved. 7. Alport syndrome. Aware. 8. Chronic pain syndrome. Continue current medications. REVIEW OF ORDERS: The patient is getting Oxy IR 15 mg 4 times a day. Getting Dilaudid right now 1 mg IV. He got 1 dose of morphine. He got another dose of 2 mg of morphine but right now he is just on the oxycodone. His hematocrit and hemoglobin are stable, hematocrit 27, hemoglobin 8, MCV is 96. Electrolytes unremarkable. Dr. Delaney is following. He has chronic kidney disease stage 5D. Continue routine his hemodialysis. Electrolytes, acid base are on target. Blood pressure on target. Diarrhea. He is C. difficile antigen positive. C. difficile toxin assay is negative. Negative for white blood cells. cc: Tam Pedraza MD
--- NOTE | 2019-07-06 00:29 | PROVIDER PROGRESS NOTE ---
Progress Note Brief GI Progress Note Patient not interviewed or examined. Chart reviewed. Order for GI consult placed for diarrhea. GI recently seen for GI bleed for NSAID-induced PUD. Labs show positive Cdiff Ag. Started oral vancomycin 125mg PO QID. On oral PPI BID without recurrent GI bleed. Dr. Contreras to see in AM to do full consult.
[2019-07-06] MEDS: DILAUDID IV PRN ×2 (01:44→16:30)
[2019-07-06] MEDS: VANCOCIN PO SCH ×4 (02:29→19:51)
[2019-07-06] MEDS: PROTONIX PO SCH ×2 (08:53→20:01)
[2019-07-06] MEDS: OXY IR PO SCH ×4 (08:53→20:00)
--- NOTE | 2019-07-06 12:29 | Diag Imaging Result Doc PS360 ---
KUB ABDOMEN - 07/06/2019 INDICATION: evaluate for constipation or obstruction COMPARISON: None FINDINGS: There is no constipation or obstruction. IMPRESSION: No acute disease. Electronically signed by Stanley Rob 07/06/2019 12:27 PM
--- NOTE | 2019-07-06 16:40 | PROGRESS NOTE ---
DATE: 07/06/2019 SUBJECTIVE: Mr. Rodrigez is resting in bed. He has an air float mattress. His family states he seems to be feeling a little better. OBJECTIVE: Temperature 98.1 degrees, pulse 100, respirations 20, and blood pressure 87/57. Pupils are equal and round. Lungs are clear in all lung mccray, cardiovascular exam with regular rhythm and rate without murmur or S3. Abdomen is soft. Skin is warm and dry. DIAGNOSTIC: Abdominal x-ray no constipation or obstruction. ASSESSMENT AND PLAN: 1. Patient had a GI consult for diarrhea and recently seen for GI bleed for nonsteroidal anti- inflammatory peptic ulcer disease. He had a positive C. Diff antigen. Started on oral vancomycin 125 mg p.o. q.i.d. and on PPI twice a day without recurrent GI bleed. He seems to be feeling a little bit better. 2. Reported fever with temperature of 100.8 degrees. 3. Right and left buttock wounds, and this may be what is causing the fever. Finished his dose of Flagyl. Topical treatment. 4. Bilateral lower extremity wounds. Wrapped in Unna boots. 5. Diarrhea. GI has evaluated, and recently treated I think for Clostridium difficile. 6. End-stage renal disease on hemodialysis Wednesdays and Fridays. Volume status and electrolytes look good. 7. Alport syndrome. 8. Chronic pain syndrome. Currently, patient is on vancomycin 125 mg p.o. q.6 hours for the C. Difficile colitis, taking lactobacillus rhamnosus 1 p.o. b.i.d., and multivitamin. He is getting oxycodone IR 15 mg 4 times a day for his pain. He has an air float mattress. Wound care per Katia David. cc: Tam Pedraza MD
--- NOTE | 2019-07-06 19:16 | GASTROENTEROLOGY CONSULTATION ---
DATE: 07/06/2019 REASON FOR CONSULTATION: Diarrhea. HISTORY OF PRESENT ILLNESS: Mr. Rodrigez is a 48-year-old male with a past history of end-stage renal disease and is on dialysis Wednesday, Wednesday, and Wednesday. 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 Patient has fistula on the left hand. 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 Due to the swelling and poor circulation in his lower extremities, he has Unna boot bilaterally. He had gone to his doctor's office for a checkup, and it was found that he had a low-grade fever, lethargic and anemic. He was sent to the hospital for further evaluation. He has complained of not having any appetite, has nausea, but denied any vomiting. As per his mother on Wednesday, he had some Boost drink during his dialysis, she thinks that the drink was because consistency of the liquids was very thick, and that must have caused him to have the diarrhea. His C-diff toxin was negative but the antigen was positive. PAST MEDICAL HISTORY: End-stage renal disease, nephrotic syndrome, nephrotic systemic fibrosis, anxiety, Alport's syndrome, with vision impairment and hearing impairment, anemia, and chronic pain syndrome and Steal syndrome. PAST SURGICAL HISTORY: Left forearm fistula, PermCath placement and removal, nasal surgery, tonsillectomy, appendectomy, kidney transplant x2, parathyroidectomy, and left ear surgery. SOCIAL HISTORY: He denies any alcohol, tobacco, or illicit drug use. He is single and lives with his parents. FAMILY HISTORY: Pancreatic cancer and diabetes. ALLERGIES: Ampicillin. MEDICATIONS: Current home medications are oxycodone 30 mg p.o. every 12 hours and Protonix 40 mg b.i.d. PHYSICAL EXAMINATION: Vital Signs: Temperature 99 degrees, pulse 105, respirations 14, blood pressure is 98/54, oxygen saturation 100% on room air. His weight is 156 pounds. BMI is 21.2 kg/m2. General: He is alert and oriented x3 answering questions appropriately in no acute distress. HEENT: Pale conjunctivitis. No icterus. PERRL. Neck: Supple. Lungs: Clear to auscultation bilaterally and in the anterior mccray. Cardiovascular: Regular rate and rhythm. No murmurs, rubs, or gallops on auscultation. Abdomen: Soft, nontender, and nondistended. Positive bowel sounds. Active bowel sounds in all 4 quadrants. Extremities: He has Unna boots on, edema bilaterally in the lower extremities and skin is dry and flaking. Neurologic: Alert and oriented x3. Nonfocal. Cranial nerves 2-12 grossly intact. LABORATORY: WBC 6.74, RBCs 2.84, hemoglobin 8.1, hematocrit 27.4, and platelet count is 258,000. PT is 19.8, INR is 1.64, PTT is 25.8, sodium is 135, potassium 3.7, chloride 94, carbon dioxide 21, anion gap 20, BUN 30, creatinine 5.6, glucose 102, calcium is 8.6, magnesium 2.3, total bilirubin 0.28, AST 30, ALT is less than 5, alkaline phosphatase is 108, and BUN is 2.9. Chest x- ray showed stable chest. CT of the head without contrast showed no hemorrhage. Negative brain CT without contrast. C-diff antigen positive, toxin negative, stools for WBC none seen. ASSESSMENT AND PLAN: Diarrhea Nausea/Vomiting GI bleed Anemia Positive C-diff antigen ESRD on dialysis PUD- gastric ulcers and duodenal ulcers Duodenal Ulcers Alport's syndrome Steal syndrome PLAN: The patient is currently on vancomycin 125 mg PO QID which will need to be continued for 10 days and we have started Culturelle PO BID for 6 weeks. We will continue the patient on Protonix 40 mg twice a day for management of recent GI bleed, gastric and duodenal ulcers . For his anemia he is on iron and multivitamin supplements. The patient receives dialysis Wednesday, Wednesday, and Wednesday. We will continue to monitor patient's diarrhea, and will plan to do a colonoscopy as an outpatient procedure if symptoms persists. This plan was discussed with Dr. Contreras. Thank you for your consult. Please call us for any further questions or concerns. Dictated by CHARLOTTE Mckinney for Hemant Contreras MD cc: Hemant Contreras MD I have seen and examined the patient myself and I agree with the above plan of care. I have discussed the above plan of care with the patient and family and all questions were answered. Please call us with any further questions or concerns. [facility]
[2019-07-06] MEDS: ICAR-C PO SCH (20:00)
[2019-07-06] MEDS: CULTURELLE PO SCH (20:00)
--- NOTE | 2019-07-06 22:11 | NEPHROLOGY PROGRESS NOTE ---
DATE: 07/06/2019 SUBJECTIVE: He has had no diarrhea today. No chills or fevers, shortness of breath, etc. OBJECTIVE: Vital Signs: Blood pressure 87/57, heart rate 104, respirations 20, afebrile. General: Chronically ill but no distress. Skin: Warm and dry. Neck: Neck veins are not distended. Heart: Regular. No gallops. Lungs: Equal. No crackles. Abdomen: Soft. Extremities: 3+ edema. IMPRESSION: Chronic kidney disease 5D. He had his routine dialysis yesterday. Euvolemic. Electrolytes/acid base in target. Anemia below target but stable. No evidence of ongoing gastrointestinal bleeding. cc: Luisito Delaney MD
[2019-07-07] MEDS: DILAUDID IV PRN ×3 (01:42→23:08)
[2019-07-07] MEDS: VANCOCIN PO SCH ×4 (01:43→20:51)
[2019-07-07] MEDS ORDERED: HEPARIN IV PRN (06:31)
[2019-07-07] MEDS ORDERED: NS 2,000 ML MISC PRN (06:31)
[2019-07-07] MEDS ORDERED: TIGHT: 0.2 ML/HR FOR DIALYSIS MISC PRN (06:31)
[2019-07-07] MEDS: OXY IR PO SCH ×4 (08:47→20:51)
[2019-07-07 09:09] LABS: BASO# 0.07 X1000 (0.0-0.2); BASO% 1.1 % (0.0-0.8); EOS# 0.23 X1000 (0.0-0.7); EOS% 3.7 % (0.0-10.0); HEMATOCRIT 25.5 % (42.0-52.0); HEMOGLOBIN 7.5 g/dL (14.0-18.0); LYMPH% 19.2 % (20.5-51.1); MCH 28.4 PG (27-31); MCHC 29.4 g/dL (33-37); MCV 96.6 FL (81-99); MONO# 0.68 X1000 (0.11-0.59); MONO% 10.9 % (1.7-9.3); MPV 9.1 FL (7.4-10.4); NEUT# 4.08 X1000 (1.4-6.5); NEUT% 65.1 % (42.2-75.2); PLT 300 X1000 (130-400); RBC 2.64 XMIL (4.7-6.1); RDW 16.3 % (11.5-14.5); WBC 6.26 X1000 (4.8-10.8)
[2019-07-07 09:31] LABS: ALBUMIN 2.7 g/dL (3.5-5.0); CALCIUM 8.2 mg/dL (8.8-10.2); CREATININE 4.7 mg/dL (0.7-1.2); PHOSPHORUS 3.7 mg/dL (2.7-4.5); POTASSIUM 3.3 mmol/L (3.5-5.1)
[2019-07-07] MEDS ORDERED: NS 500 ML IV ONE (10:41)
--- NOTE | 2019-07-07 13:23 | NEPHROLOGY PROGRESS NOTE ---
DATE: 07/07/2019 SUBJECTIVE: He is lying in the bed. He states he still is having diarrhea. He is somewhat sedated this morning. OBJECTIVE: Vital Signs: Blood pressure 87/57, heart rate 100, respirations 12, afebrile. General: Chronically ill, obvious weight loss. No acute distress. Skin: Warm and dry. Neck: Neck veins are 6 cm of water. Heart: Regular with S4. Lungs: Equal, shallow, no crackles. Abdomen: Soft, nontender. Bowel sounds present. Extremities: Trace edema. No clubbing or cyanosis. Wounds are dressed. IMPRESSION: Chronic kidney disease 5D. He will undergo his routine hemodialysis treatment today except we will use a 4K bath. 2 L ultrafiltration as his blood pressure allows. He does have anemia and his hemoglobin has trended downward. May require transfusion. We will continue to observe. cc: Luisito Delaney MD
[2019-07-07] MEDS: CULTURELLE PO SCH ×2 (13:37→20:51)
[2019-07-07] MEDS: CENTRUM SILVER PO SCH (13:37)
[2019-07-07] MEDS: ICAR-C PO SCH ×2 (13:37→20:51)
[2019-07-07] MEDS: PROTONIX PO SCH ×2 (13:38→20:51)
--- NOTE | 2019-07-07 13:59 | GASTROENTEROLOGY PROGRESS NOTE ---
DATE: 07/07/2019 SUBJECTIVE: Mr. Rodrigez was in dialysis this morning, resting in bed. He has denied any nausea or vomiting. He does have some generalized abdominal tenderness in the upper and lower quadrant.. OBJECTIVE: Vital Signs: Temperature 98.8 degrees, pulse 100, respirations 12, blood pressure 87/57, oxygen saturation 100% on room air. Patient's weight is 156 pounds. BMI is 21.2 kg/m2. General: He is alert, oriented x3. He is currently receiving dialysis. HEENT: Pale conjunctivitis. No icterus. PERRL. Neck: Supple. Lungs: Clear to auscultation bilaterally on anterior mccray. Cardiovascular: Regular rate and rhythm. No murmurs, rubs, or gallops heard on auscultation. Abdomen: Soft, tender, nondistended. Active bowel sounds heard in all 4 quadrants. Extremities: Has edema and Unna boot in the lower extremities bilaterally. Skin on his feet is dry and flaky. Neurological: Alert, oriented x3. LAB: WBC 6.26, RBC 2.64, hemoglobin 7.5, hematocrit 25.5, platelet count is 300,000. CT sodium is 136, potassium 3.3, chloride is 96, carbon dioxide is 25, anion gap is 15, BUN is 20, creatinine is 4.7, total bilirubin is 0.30. His albumin is 2.7, calcium 8.2, and phosphorus 3.7. PT 19.8 and INR 1.64 IMPRESSION: Diarrhea Nausea/Vomiting GI bleed Anemia Cdiff ESRD on dialysis Wed/Wed/Wednesday Gastric ulcers Duodenal ulcers PLAN: Patient is currently on dialysis Wednesday/Wednesday/Wednesday. He is on Protonix 40 mg p.o. twice a day for his GI bleed. He has been receiving vancomycin 125 mg p.o. every 6 hours for his C. difficile and is on Culturelle. Patient is on iron and multivitamin for his anemia. His H & H 7.5 and 25. The patient is currently on dialysis. His INR was 1.64 from 07/04/2019. We will continue the current plan of care and continue to monitor the patient's CBC and BMP. This plan was discussed with Dr. Brennan. Please call us for any further questions or concerns. Dictated by CHARLOTTE Mckinney for Juve Brennan MD Physician Attestation I have seen and examined the patient. I have discussed and reviewed the the note by Jacqueline PORTER and agree with findings and plan as documented. In brief, Mr. Hussain Rodrigez is a 48-year-old gentleman with past medical history of end-stage renal disease on hemodialysis, bilateral decubitus ulcers in the buttocks, and recent GI bleed with anemia from NSAID-induced PUD who presented with N/V/D found to have CDiff infection. He had 2 bowel movements yesterday. No further N/V. No abdominal pain. He is tolerating PO intake. Recommend completing 10 day course of vancomycin 125mg QID. He is on probiotic. Will sign off. Please call with questions. MTDD
[2019-07-07] MEDS ORDERED: NS 500 ML ONE (14:47)
--- NOTE | 2019-07-07 15:32 | PROGRESS NOTE ---
DATE: 07/07/2019 SUBJECTIVE: The patient is resting comfortable in bed. Not in any obvious distress. OBJECTIVE: Vital signs: Temperature is 98.2 degrees, pulse is 113 respiratory rate is 14, blood pressure is 91/60, oxygen saturation 100%. HEENT: Atraumatic, normocephalic. Cardiovascular: S1, S2. Respiratory: Has evidence of good air entry bilaterally. Abdomen: Soft, nontender. No masses. Extremities: The patient has both lower extremities wrapped in Unna boots. Central nervous system: No obvious focal deficit. LABS: WBC 6.26, hematocrit 25.5 with a platelet count of 300,000. Sodium is 136, potassium 3.3, chloride is 96, bicarb 25, BUN is 20 creatinine is 4.7. ASSESSMENT AND PLAN: 1. Clostridium difficile colitis. Continue oral vancomycin. 2. Bilateral lower extremity wounds. Wrapped in Unna boots. Aware. 3. End-stage renal disease. Continue hemodialysis as recommended by Nephrology. 4. Anemia probably of chronic disease. Follow up on hemoglobin, hematocrit. Transfuse packed red blood cells as needed. 5. Alport syndrome. Aware. 6. Bilateral buttocks wounds. Continue local wound care. 7. Deep venous thrombosis heparin and gastrointestinal prophylaxis pantoprazole. cc: Marcos Jj MD
[2019-07-08] MEDS: VANCOCIN PO SCH ×4 (02:20→21:29)
[2019-07-08] MEDS: DILAUDID IV PRN ×4 (02:25→19:50)
[2019-07-08 07:26] LABS: BASO# 0.04 X1000 (0.0-0.2); BASO% 0.8 % (0.0-0.8); EOS% 3.8 % (0.0-10.0); HEMATOCRIT 28.4 % (42.0-52.0); HEMOGLOBIN 8.4 g/dL (14.0-18.0); LYMPH# 1.09 X1000 (1.2-3.4); LYMPH% 20.7 % (20.5-51.1); MCH 28.6 PG (27-31); MCHC 29.6 g/dL (33-37); MCV 96.6 FL (81-99); MONO# 0.87 X1000 (0.11-0.59); MONO% 16.5 % (1.7-9.3); MPV 9.6 FL (7.4-10.4); NEUT# 3.06 X1000 (1.4-6.5); NEUT% 58.2 % (42.2-75.2); PLT 280 X1000 (130-400); RBC 2.94 XMIL (4.7-6.1); RDW 16.2 % (11.5-14.5); WBC 5.26 X1000 (4.8-10.8)
[2019-07-08] MEDS: PROTONIX PO SCH ×2 (08:07→21:29)
[2019-07-08] MEDS: CENTRUM SILVER PO SCH (08:07)
[2019-07-08] MEDS: ICAR-C PO SCH ×2 (08:07→21:29)
[2019-07-08] MEDS: CULTURELLE PO SCH ×2 (08:07→21:29)
[2019-07-08] MEDS: OXY IR PO SCH ×4 (09:22→21:29)
--- NOTE | 2019-07-08 18:44 | PROGRESS NOTE ---
DATE: 07/08/2019 SUBJECTIVE: Patient is somewhat somnolent although his mom notes he just received some pain medication and prior to that she states he was awake, alert, oriented. PHYSICAL: Temperature 98, pulse 106, respiratory 18, BP 107/51.General: Patient is awake, he does fall back asleep quickly when not stimulated, as noted above he did just receive pain medication and mom notes that this occurs after he 1st receives pain medicine. HEENT: Normocephalic. Neck: Supple. CV: Regular rate. Chest: Clear. Abdomen: Soft. Extremities: Both lower extremities are wrapped in Unna boots. ASSESSMENT: 1. Clostridium difficile. Will continue oral vancomycin. 2. Bilateral lower extremity wounds currently wrapped in Unna boot. His edema appears to be improved. He has wrinkles on his feet bilaterally . 3. End-stage renal disease. 4. Hypokalemia. 5. Anemia of chronic disease. 6. History of gastrointestinal bleed, gastric ulcer. PLAN: Continue patient the hospital, continue current treatment, further orders as needed. cc: Jh Davidson MD
[2019-07-09] MEDS: VANCOCIN PO SCH ×4 (03:36→20:08)
[2019-07-09] MEDS: DILAUDID IV PRN ×4 (03:36→21:46)
[2019-07-09] MEDS: TYLENOL PO PRN ×2 (05:36→23:50)
[2019-07-09] MEDS: OXY IR PO SCH ×4 (08:28→20:08)
[2019-07-09] MEDS: CENTRUM SILVER PO SCH (08:28)
[2019-07-09] MEDS: CULTURELLE PO SCH ×2 (08:28→20:08)
[2019-07-09] MEDS: ICAR-C PO SCH ×2 (08:28→20:08)
[2019-07-09] MEDS: PROTONIX PO SCH ×2 (08:28→20:08)
[2019-07-09] MEDS ORDERED: SYSTANE EYE DROPS BOTH EYES PRN (14:41)
--- NOTE | 2019-07-09 15:00 | PROGRESS NOTE ---
DATE: 07/09/2019 SUBJECTIVE: Mr. Rodrigez says he is not hurting right now. He is comfortable, breathing comfortable. His mouth feels dry, and he is not able to really swallow much in the way of food, he mainly states because his mouth is so dry. OBJECTIVE: Vital Signs: Temp 98.1 degrees, pulse 100, respirations 14, blood pressure 100/61. HEENT: Pupils are equal and round. Lungs: Clear in all lung mccray. Cardiovascular: Regular rhythm and rate without murmur or S3. Abdomen: Soft. Extremities: He has got Unna boots on. The swelling seems to have gone down in both his lower extremities. ASSESSMENT AND PLAN: 1. Clostridium difficile. Continue oral vancomycin. 2. Bilateral lower extremity wounds. Currently wrapped in Unna boot. Appears to be improving. 3. End-stage renal disease. 4. Hypokalemia. Continue supplement as needed. 5. Anemia of chronic disease. 6. History of gastrointestinal bleed and gastric ulcer. 7. Bilateral buttock wounds. He has an air float mattress, and these are getting better. Continue topical treatment. Dr. Brennan of Gastroenterology is following. 8. He has end-stage renal disease on hemodialysis, bilateral decubitus ulcers in the buttocks, recent gastrointestinal bleed with anemia from nonsteroidal anti-inflammatory drug-induced, peptic ulcer disease, presented with nausea, vomiting, and diarrhea. Also found to have Clostridium difficile, had 2 bowel movements yesterday. No further nausea or vomiting, so recommended completing a 10-day course of vancomycin 125 mg 4 times a day. We are going to have to address his nutrition if he is not able to eat, so I encouraged him to drink fluids and try and get food down. He has chronic kidney disease stage 5D. He is going to undergo routine hemodialysis. His volume status and electrolytes look okay. cc: Tam Pedraza MD
[2019-07-10] MEDS: DILAUDID IV PRN ×4 (01:00→23:58)
[2019-07-10] MEDS: VANCOCIN PO SCH ×4 (01:01→20:55)
[2019-07-10] MEDS ORDERED: HEPARIN IV PRN (06:24)
[2019-07-10] MEDS ORDERED: NS 2,000 ML MISC PRN (06:24)
[2019-07-10] MEDS ORDERED: TIGHT: 0.2 ML/HR FOR DIALYSIS MISC PRN (06:24)
[2019-07-10] MEDS: ZOFRAN IV PRN ×2 (08:15→21:56)
[2019-07-10] MEDS: ICAR-C PO SCH ×2 (08:29→20:55)
[2019-07-10] MEDS: CENTRUM SILVER PO SCH (08:29)
[2019-07-10] MEDS: PROTONIX PO SCH ×2 (08:29→20:55)
[2019-07-10] MEDS: CULTURELLE PO SCH ×2 (08:29→20:55)
[2019-07-10] MEDS: OXY IR PO SCH ×4 (08:30→20:55)
--- NOTE | 2019-07-10 09:39 | NEPHROLOGY PROGRESS NOTE ---
DATE: 07/10/2019 Subjective: pt lying in bed watching television. Denies any uremic complaints. Objective: vitals. Temp 98.0, pulse 98, respirations 19, blood pressure 120/70, 02 sat 100% on room air. General: this is a chronically ill appearing white male lying in bed in no acute distress. HEENT: Normocephalic, a traumatic. Trachea midline. Mucous membranes moist. Skin: multiple scattered bruises among upper extremities. Neck: supple, 8 cm JVD. Cardiovascular: S1,S2, S4. Tachycardic, No murmur or gallop noted. Abdomen: soft, nontender nondistended. Bowel sounds active. : not inspected Extremities:2+ pitting Edema to bilateral lower extremities with bandages in place to both ankles. Neurologic: alert, oriented to person, place, and time. Assessment and plan: Chronic kidney disease stage 5D. Patient will have his routine hemodialysis today. Electrolytes and acid base balance. Stable. Anemia. Low but stable. cc: Luisito Delaney MD MTDD
--- NOTE | 2019-07-10 13:46 | GASTROENTEROLOGY PROGRESS NOTE ---
DATE: 07/10/2019 SUBJECTIVE: Patient resting in bed. He complains of diarrhea. He is tolerating diet well. He had 1 bowel movement today. He denies noticing any blood in the stools. The stool is described as brown. He denies any fevers, rigors, chills. OBJECTIVE: Vital Signs: Temperature 98 degrees, pulse of 90, respiratory rate 19, blood pressure 120/70, saturating 100% on room air. Body weight of 156 pounds 3 ounces. BMI 21.2 kg/m2. General: Moderately built, moderately nourished, lying in bed, in no acute distress. HEENT: Positive pallor. No icterus. Neck: Supple. Abdomen: Discomfort in the abdomen in the periumbilical region. No rebound. Extremities: No cyanosis and clubbing. He has Unna boots on. He has swelling in the lower extremities. Neurologic: He is awake, alert. Answers questions. LABORATORY DATA: 1. Hemoglobin and hematocrit is 8.4 and 28.4, white count of 5.26. Platelet count of 280,000. No CMP was done today. His INR done on 07/04/2019 was 1.64. 2. Stool studies were done on 07/05 and were positive for Clostridium difficile antigen. Ova and parasites are still pending. Stool for white cells, none seen. IMPRESSION AND PLAN: 1. Diarrhea. Continue on vancomycin 125 mg p.o. every 6 hours total of 10 days. We will keep him on Culturelle 1 capsule p.o. b.i.d. for 6 weeks. 2. Nausea. We will continue on IV antiemetics as needed. 3. Gastrointestinal bleed has resolved. No active bleeding reported. He is anemic. We will continue to watch. For now, we will start on multivitamin, iron C b.i.d. 4. Endstage renal disease, on hemodialysis secondary to Alport syndrome. This is managed by Dr. Delaney. 5. His INR was 1.6 on admission. We will recheck the INR today and if he continues to be coagulopathic he may need vitamin K. 6. Gastric ulcer and duodenal ulcer seen on recent EGD with Dr. Brennan. He will need repeat EGD in 3 months. He will continue on p.o. PPIs for now. 7. We will sign off for now. We will follow up the patient in the clinic with Dr. Brennan in 4 weeks of discharge. Please call us with any further questions. cc: MD Tam Henderson MD Alicia L. Hamman, CRNP MTDD
--- NOTE | 2019-07-10 18:47 | PROGRESS NOTE ---
DATE: 07/10/2019 SUBJECTIVE: Mr Rodrigez appears more comfortable, a little more awake today. He was able to drink a little more fluids and get a little bit more food down. He wants to try some liquid nutrition, but he also wants to pursue placing a PEG tube. So, I will ask Gastroenterology to look because we are going to need to not just get adequate nutrition, but try and increase his caloric intake to make up for his protein calorie malnutrition at the present time. OBJECTIVE: Vital signs: Temperature 99 degrees, pulse 111, respirations 16, blood pressure 106/54. HEENT: Pupils are equal. Lungs: Clear in all lung mccray. Cardiovascular exam: Regular rhythm and rate without murmur or S3. Abdomen: Soft. Skin: Warm and dry. ASSESSMENT AND PLAN: 1. Diarrhea. Continue to treat for Clostridium difficile, vancomycin 150 mg q. 6 hours for a total of 10 days. Continue Culturelle. 2. Nausea. He is on IV antiemetics. 3. Gastrointestinal bleeding. No active bleeding reported. Continue. 4. End-stage renal disease on hemodialysis secondary to Alport syndrome, managed by Dr. Delaney. His volume status and electrolytes look good. 5. INR is 1.6 on admission. If he continues to be coagulopathic, may need to give him some vitamin K. 6. Gastric ulcer and duodenal ulcer seen on EGD per Dr. Brennan. Repeat EGD in 3 months. Can continue PPIs. 7. Nutrition: Continued to encourage him to try and get increased p.o. intake. He had questions about placing a feeding tube or PEG tube. We will have him discuss this with Dr. Contreras to see if that is an option. They would like to go to rehab so they have renal social worker looking into that. He has some unna boots on for his pedal edema. Overall, I think that is doing better. cc: Tam Pedraza MD
[2019-07-11] MEDS: VANCOCIN PO SCH ×4 (03:16→21:23)
[2019-07-11] MEDS: DILAUDID IV PRN ×4 (03:16→18:31)
[2019-07-11 05:40] LABS: INR 1.87
[2019-07-11 06:43] LABS: BASO# 0.04 X1000 (0.0-0.2); BASO% 0.8 % (0.0-0.8); EOS% 2.1 % (0.0-10.0); HEMATOCRIT 27.5 % (42.0-52.0); HEMOGLOBIN 8.1 g/dL (14.0-18.0); LYMPH% 22.7 % (20.5-51.1); MCH 28.3 PG (27-31); MCHC 29.5 g/dL (33-37); MCV 96.2 FL (81-99); MONO# 0.79 X1000 (0.11-0.59); MONO% 16.3 % (1.7-9.3); MPV 10.1 FL (7.4-10.4); NEUT# 2.82 X1000 (1.4-6.5); NEUT% 58.1 % (42.2-75.2); PLT 263 X1000 (130-400); RBC 2.86 XMIL (4.7-6.1); RDW 15.6 % (11.5-14.5); WBC 4.85 X1000 (4.8-10.8)
[2019-07-11 08:15] LABS: CALCIUM 8.6 mg/dL (8.8-10.2); PHOSPHORUS 4.6 mg/dL (2.7-4.5); POTASSIUM 4.4 mmol/L (3.5-5.1)
[2019-07-11 08:25] LABS: CREATININE 5.7 mg/dL (0.7-1.2)
[2019-07-11] MEDS ORDERED: DILAUDID IV PRN (08:50)
[2019-07-11] MEDS: CENTRUM SILVER PO SCH (10:02)
[2019-07-11] MEDS: PROTONIX PO SCH ×2 (10:02→21:23)
[2019-07-11] MEDS: ICAR-C PO SCH ×2 (10:02→21:23)
[2019-07-11] MEDS: OXY IR PO SCH ×4 (10:02→21:23)
[2019-07-11] MEDS: CULTURELLE PO SCH ×2 (10:02→21:23)
--- NOTE | 2019-07-11 10:59 | NEPHROLOGY PROGRESS NOTE ---
DATE: 07/11/2019 Subjective: pt lying in bed watching television. Denies any uremic complaints. Voices one episode of diarrhea over the last 24 hours and plans to go to rehab after discharge. Objective: vitals. Temperature 98.3, pulse 96, respirations 16, blood pressure 135/52, o2 sat 100% on room air. General: this is a chronically ill appearing white male lying in bed in no acute distress. HEENT: Normocephalic, atraumatic. Trachea midline. Mucous membranes moist. Skin: multiple scattered bruises among upper extremities. Neck: supple, 8 cm JVD. Cardiovascular: S1,S2, S4. Tachycardic, No murmur noted. Lungs: clear with no tales or crackles. Abdomen: soft, nontender nondistended. Bowel sounds active. : not inspected Extremities: 2+ pitting Edema to bilateral lower extremities with bandages in place to both ankles. Left fistula with positive thrill and bruit. Neurologic: alert, oriented to person, place, and time. Labs: Wbc 4.85, hemoglobin 8.1, hematocrit 27.5, platelet count 263, sodium 135, potassium 4.4, chloride 93, carbon dioxide 24, anion gap 18, BUN 24, creatinine 5.7, calcium 8.6, phosphorus 4.6, albumin 3.0. input 608, output 1804. Assessment and plan: Chronic kidney disease stage 5D. Patient had his routine dialysis treatment yesterday. No change in plan. Electrolytes and acid base balance. Stable. Anemia. Low but stable. To rehab soon. cc: Luisito Delaney MD [facility]
--- NOTE | 2019-07-11 20:55 | PROGRESS NOTE ---
DATE: 07/11/2019 SUBJECTIVE: The patient states that he still feels very weak. He states that his stool feels soft, but he cannot tell when he has had a bowel movement. OBJECTIVE: Vital Signs: Temperature 98.6 degrees, blood pressure 125/45, heart rate 109, respirations 18, O2 saturation 98% on room air. General: This is a chronically ill-appearing middle-aged male sitting up in bed in no acute distress. Head: Normocephalic, atraumatic. Heart: S1, S2 normal. Tachycardic. Lungs: Equal air entry bilaterally. No wheezing. No rales. Abdomen: Positive bowel sounds. Soft, nontender, nondistended. Extremities: 2+ pedal edema in the lower extremities. Neurologic: The patient is alert and oriented x4. LABORATORY DATA: White blood cell count 4.8, hemoglobin 8.1, hematocrit 27, platelets 263,000. INR 1.8. Sodium 135, potassium 4.4, chloride 93, CO2 24, BUN 24, creatinine 5.7, glucose 103, albumin 3. ASSESSMENT AND PLAN: 1. Clostridium difficile colitis. Slowly improving. The patient's bowel movements are less frequent now, and the stool is soft. We will continue on oral vancomycin. Today is day 6 of therapy. 2. Left heel pressure ulceration. Continue with wound care. 3. Stage IV left ischial decubitus ulcer. Continue with wound care. 4. Stage IV right ischial decubitus ulcer. Continue with wound care. 5. Chronic kidney disease stage 5D. Continue with dialysis as scheduled by Dr. Delaney. 6. Gastric and duodenal ulcers. Continue on Protonix twice a day. 7. Severe deconditioning. The patient is currently undergoing physical therapy. Patient will need inpatient rehab placement. [facility] is working on placement. 8. Anemia. Monitor. 9. Deep vein thrombosis prophylaxis. We will start the patient on heparin. cc: Tanya Ferrara MD [facility]
[2019-07-11] MEDS: HEPARIN SUBQ SCH (21:29)
[2019-07-12] MEDS: VANCOCIN PO SCH ×4 (01:27→20:43)
[2019-07-12] MEDS: DILAUDID IV PRN ×4 (03:50→23:40)
[2019-07-12 05:53] LABS: HEMATOCRIT 25.4 % (42.0-52.0); HEMOGLOBIN 7.8 g/dL (14.0-18.0); MCH 29.5 PG (27-31); MCHC 30.7 g/dL (33-37); MCV 96.2 FL (81-99); MPV 10.4 FL (7.4-10.4); RBC 2.64 XMIL (4.7-6.1); RDW 15.6 % (11.5-14.5); WBC 5.15 X1000 (4.8-10.8)
[2019-07-12 06:09] LABS: INR 1.68; PROTIME 20.2 Seconds (11.0-16.0)
[2019-07-12 06:10] LABS: ALBUMIN 2.6 g/dL (3.5-5.0); PHOSPHORUS 5.2 mg/dL (2.7-4.5); POTASSIUM 4.2 mmol/L (3.5-5.1)
[2019-07-12 06:44] LABS: CREATININE 7.1 mg/dL (0.7-1.2)
[2019-07-12] MEDS ORDERED: NS 2,000 ML MISC PRN (07:12)
[2019-07-12] MEDS ORDERED: HEPARIN IV PRN (07:12)
[2019-07-12] MEDS ORDERED: TIGHT: 0.2 ML/HR FOR DIALYSIS MISC PRN (07:12)
[2019-07-12] MEDS: CULTURELLE PO SCH ×2 (08:16→20:45)
[2019-07-12] MEDS: CENTRUM SILVER PO SCH (08:16)
[2019-07-12] MEDS: ICAR-C PO SCH ×2 (08:16→20:45)
[2019-07-12] MEDS: OXY IR PO SCH ×4 (08:16→20:44)
[2019-07-12] MEDS: HEPARIN SUBQ SCH ×3 (08:19→20:44)
[2019-07-12] MEDS: PROTONIX PO SCH ×2 (08:20→20:44)
--- NOTE | 2019-07-12 09:30 | NEPHROLOGY PROGRESS NOTE ---
DATE: 07/12/2019 Subjective: patient lying in bed watching television. Denies any uremic complaints. Voices his gluteal wounds are getting sore despite rotating in the bed and is requesting a dialysis chair. Objective: vitals. Temperature 98.0, pulse 101, blood pressure 91/61, respirations 20, O2 sat 100% on room air. General: this is a chronically ill appearing white male lying in bed in no acute distress. HEENT: Normocephalic, atraumatic. Trachea midline. Mucous membranes moist. Skin: multiple scattered bruises among upper extremities. Neck: supple, 8 cm JVD Cardiovascular: S1,S2, S4. Tachycardic, No murmur noted. Lungs: clear with no rales or crackles. Abdomen: soft, nontender nondistended. Bowel sounds hyperactive. : not inspected Extremities:1+ pitting Edema to bilateral lower extremities. Left fistula with positive thrill and bruit. Neurologic: alert, oriented to person, place, and time. Labs: WBC 5.15, hemoglobin 7.8, hematocrit 25.4, platelet count to 57, sodium 136, potassium 4.2, chloride 95, carbon dioxide 26, anion gap 15, BUN 33, Creatinine 7.1, calcium 8. Intake 480 output 0 Assessment and plan: Chronic kidney disease stage 5D. He will have his routine hemodialysis treatment today. Electrolytes and acid base balance. Stable. Anemia. Low but stable. Awaiting rehab placement. cc: Luisito Delaney MD MTDD
[2019-07-12] MEDS: D50W 250 ML, AMINOSYN 15% 500 ML, LIPOSYN 20% 250 ML IV SCH ×3 (13:54)
--- NOTE | 2019-07-12 16:07 | PROGRESS NOTE ---
DATE: 07/12/2019 SUBJECTIVE: The patient is resting comfortably. He has not been eating. He had 1 soft stool today. OBJECTIVE: Vital Signs: Temperature 97.7 degrees, blood pressure 105/55, heart rate 113 respirations 18, O2 saturations 97% on room air. General: This is a chronically ill appearing, emaciated middle-aged male lying in bed in no acute distress. Heart: S1, S2 normal. Tachycardic. Lungs: Equal air entry bilaterally. No wheezing. No rales. Abdomen: Positive bowel sounds. Soft, nontender, nondistended. Extremities: 1+ edema bilaterally. Neurologic: The patient is alert and oriented x3. LABORATORY DATA: White blood cell count 5.1, hemoglobin 7.8, hematocrit 25, platelets 257,000. INR 1.6. Sodium 136, potassium 4.2, chloride 95, CO2 26, BUN 33, creatinine 7.1, glucose 97, albumin 2.6. ASSESSMENT AND PLAN: 1. Clostridium difficile colitis. The patient is no longer having diarrhea. His stools are now soft and formed. Continue on oral vancomycin and lactobacillus. Today is day 7 of therapy. 2. Severe protein calorie malnutrition. We will start the patient on Megace. The patient will also receive intradialytic parenteral nutrition during his dialysis sessions. 3. Left heel pressure ulceration. Continue with wound care. 4. Stage IV left ischial decubitus ulcer. Continue with wound care. 5. Stage IV right ischial decubitus ulcer. Continue with wound care. 6. Chronic kidney disease stage 5 D. The patient is due for dialysis today. 7. Severe deconditioning. Continue with physical therapy. 8. Gastric and dual duodenal ulcers. Continue on Protonix. 9. Anemia. Hemoglobin and hematocrit are trending downward. Continue to monitor closely. 10. Coagulopathy. Continue to monitor. DISPOSITION: The patient will be discharged to [facility] once a bed is available. cc: Tanya Ferrara MD [facility]ITAL[facility]uanito
[2019-07-12] MEDS: MEGACE LIQUID PO SCH (20:45)
[2019-07-13] MEDS: DILAUDID IV PRN ×3 (02:21→15:46)
[2019-07-13] MEDS: VANCOCIN PO SCH ×4 (02:45→21:22)
[2019-07-13 05:23] LABS: HEMATOCRIT 28.5 % (42.0-52.0); HEMOGLOBIN 8.3 g/dL (14.0-18.0); MCH 28.1 PG (27-31); MCHC 29.1 g/dL (33-37); MCV 96.6 FL (81-99); MPV 9.5 FL (7.4-10.4); RBC 2.95 XMIL (4.7-6.1); RDW 15.4 % (11.5-14.5); WBC 6.21 X1000 (4.8-10.8)
[2019-07-13 05:34] LABS: ALBUMIN 2.6 g/dL (3.5-5.0); CALCIUM 8.7 mg/dL (8.8-10.2); CREATININE 4.6 mg/dL (0.7-1.2); PHOSPHORUS 3.6 mg/dL (2.7-4.5); POTASSIUM 3.9 mmol/L (3.5-5.1)
--- NOTE | 2019-07-13 07:52 | NEPHROLOGY PROGRESS NOTE ---
DATE: 07/13/2019 Subjective: lying in bed resting aroused to verbal stimuli. Voices eating supper better last night but still having episodes of diarrhea Objective: vitals. Temperature 97.8, pulse 107, respirations 19, blood pressure 111/59, 02 sat 98% on room air. General: this is a chronically ill appearing white male lying in bed in no acute distress. HEENT: Normocephalic, atraumatic. Trachea midline. Mucous membranes moist. Skin: multiple scattered bruises among upper extremities. Neck: supple, no JVD Cardiovascular: S1,S2, S4. Gallop, No murmur noted. Lungs: shallow but clear with no rales or crackles. Abdomen: soft, nontender nondistended. Bowel sounds hyperactive. : not inspected Extremities: Trace Edema to bilateral lower extremities. Left fistula with positive thrill and bruit. Neurologic: alert, oriented to person, place, and time. Labs: WBC 6.21, hemoglobin 8.3, hematocrit 28.5, sodium 133, potassium 3.9, chloride 94, carbon dioxide 28, anion gap 11, BUN 21, creatinine 4.6, calcium 8.7, phosphorus 3.6, albumin 2.6. Intake 120 output 3484 per dialysis Assessment and plan: Chronic kidney disease stage 5D. He had his routine hemodialysis treatment yesterday. Continue current plan. Electrolytes and acid base balance. Stable. Anemia. Low but stable. No transfusion at this time. Diarrhea. Some improvement. Rehab placement. cc: Luisito Delaney MD [facility]
[2019-07-13] MEDS: ICAR-C PO SCH ×2 (08:49→21:22)
[2019-07-13] MEDS: CULTURELLE PO SCH ×2 (08:49→21:22)
[2019-07-13] MEDS: PROTONIX PO SCH ×2 (08:49→21:23)
[2019-07-13] MEDS: MEGACE LIQUID PO SCH ×2 (08:49→21:22)
[2019-07-13] MEDS: CENTRUM SILVER PO SCH (08:49)
[2019-07-13] MEDS: HEPARIN SUBQ SCH ×2 (08:50→21:23)
[2019-07-13] MEDS: OXY IR PO SCH ×4 (08:50→21:22)
--- NOTE | 2019-07-13 14:49 | PROGRESS NOTE ---
DATE: 07/13/2019 SUBJECTIVE: The patient is resting comfortably. He ate a little bit more of his breakfast this morning. He is no longer having diarrhea. OBJECTIVE: Vital Signs: Temperature 98 degrees, blood pressure 124/58, heart rate 101, respirations 18, O2 saturation is 98% on room air. General: This is a severely emaciated, middle- aged male sitting up in bed, in no acute distress. Head normocephalic, atraumatic. Heart: S1, S2 normal, tachycardic. Lungs: Equal air entry bilaterally. No wheezing. No rales. No rhonchi. Abdomen: Positive bowel sounds. Soft, nontender, nondistended. Extremities: There is + 1 edema bilaterally. Neurologic: The patient is alert and oriented x4. Laboratory Data: White blood cell count 6.2, hemoglobin 8.3, hematocrit 28, platelets 233,000. Sodium 133, potassium 3.9, chloride 94, CO2 of 28, BUN 21, creatinine 4.6, glucose 113. ASSESSMENT AND PLAN: 1. Clostridium difficile colitis. Improved. Today is day 8 of therapy. Continue on oral vancomycin and lactobacillus. 2. Severe protein calorie malnutrition. Continue on Nephro shakes plus Megace and intradialytic parenteral nutrition during the patient's dialysis sessions. 3. Left heel pressure ulceration. Continue with wound care and offloading as ordered. 4. Stage 4 left ischial decubitus ulcer. Continue with wound care. 5. Stage 4 right ischial decubitus ulcer. Continue with wound care. 6. Chronic kidney disease stage 5D. Management as per Dr. Delaney. 7. Gastric and duodenal ulcers. Continue on Protonix. 8. Severe deconditioning and weakness. Continue with physical therapy. 9. Anemia. The patient is on iron replacement therapy. Continue to monitor closely. 10. Deep venous thrombosis prophylaxis. Continue on heparin. 11. Disposition. The patient is stable for discharge to inpatient rehab. A bed will be available tomorrow. cc: Tanya Ferrara MD [facility]
[2019-07-14] MEDS: VANCOCIN PO SCH ×3 (02:03→14:29)
[2019-07-14] MEDS: DILAUDID IV PRN ×2 (02:03→06:03)
[2019-07-14 06:00] LABS: ALBUMIN 2.8 g/dL (3.5-5.0); CALCIUM 8.9 mg/dL (8.8-10.2); CREATININE 6.3 mg/dL (0.7-1.2); PHOSPHORUS 3.6 mg/dL (2.7-4.5); POTASSIUM 4.1 mmol/L (3.5-5.1)
[2019-07-14 06:07] LABS: HEMATOCRIT 26.4 % (42.0-52.0); HEMOGLOBIN 7.9 g/dL (14.0-18.0); MCH 29.3 PG (27-31); MCHC 29.9 g/dL (33-37); MCV 97.8 FL (81-99); MPV 10.2 FL (7.4-10.4); RBC 2.7 XMIL (4.7-6.1); RDW 15.4 % (11.5-14.5); WBC 7.11 X1000 (4.8-10.8)
[2019-07-14] MEDS ORDERED: TIGHT: 0.2 ML/HR FOR DIALYSIS MISC PRN (07:57)
[2019-07-14] MEDS ORDERED: NS 2,000 ML MISC PRN (07:57)
[2019-07-14] MEDS ORDERED: HEPARIN IV PRN (07:57)
[2019-07-14] MEDS: OXY IR PO SCH ×2 (08:43→14:28)
[2019-07-14] MEDS: D50W 250 ML, AMINOSYN 15% 500 ML, LIPOSYN 20% 250 ML IV SCH ×3 (09:14)
--- NOTE | 2019-07-14 10:45 | DISCHARGE SUMMARY ---
ADMISSION DATE: 07/05/2019 DISCHARGE DATE: 07/14/2019 FINAL DISCHARGE DIAGNOSES: 1. Clostridium difficile colitis. 2. Severe protein calorie malnutrition. 3. Left heel pressure ulceration. 4. Stage 4 left ischial decubitus ulcer. 5. Stage 4 right ischial decubitus ulcer. 6. Chronic kidney disease stage 5D on hemodialysis Wednesday, Wednesday, Wednesday. 7. Gastric ulcer. 8. Duodenal ulcer. 9. Severe deconditioning and weakness. 10. Anemia of chronic disease. 11. 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 12. Chronic pain syndrome. CONSULTATIONS: 1. GI consultation with Dr. Contreras. 2. Nephrology consultation with Dr. Delaney. IMAGIN. Portable chest x-ray performed on 07/04/2019 that revealed no pneumonia. 2. Head CT performed on 07/04/2019 that was negative. 3. Abdominal x-ray performed on 07/06/2019 that revealed no acute disease. HOSPITAL COURSE: Mr. Rodrigez is a 48-year-old male with a history of multiple medical problems, who initially was brought to the ER with a chief complaint of abdominal pain, persistent diarrhea, and fever. The patient was admitted to the Hospitalist Service and stool studies were obtained. Also GI was consulted. Ultimately, the patient was noted to have a positive C difficile antigen. The patient was then started on oral vancomycin. Dr. Delaney was consulted for dialysis support and the patient underwent dialysis as scheduled also. The patient was noted to have several decubitus ulcerations, so Wound Care was consulted. The patient was placed on an air mattress to assist with offloading of the patient's multiple decubitus ulcerations. Wound Care was performed every day. With the initiation of treatment, the patient's diarrhea resolved. The patient is now on day 9 of a 10-day course of oral vancomycin. The dietitian was consulted for assistance with improving the patient's caloric intake. The patient was started on a renal diet and Nephro shakes 3 times a day. The patient is currently stable for discharge to inpatient rehab today. DISCHARGE MEDICATIONS: 1. Vancomycin 125 mg oral every 6 hours x2 days. 2. Lactobacillus 1 tablet oral twice a day. 3. Icar-C 1 tablet oral twice a day. 4. Megace 200 mg oral twice a day. 5. Oxycodone IR 15 mg oral 4 times a day p.r.n. 6. Systane 1 drop in both eyes p.r.n. 7. Protonix 40 mg oral twice a day. DISCHARGE DIET: Renal diet with Nephro shakes with each meal. ACTIVITY: As tolerated. FOLLOWUP INSTRUCTIONS: The patient will need to follow up for his routine dialysis sessions as scheduled by Dr. Delaney. Follow up with in 4 weeks. cc: Tayna Ferrara MD [facility]ITAL[facility]uan[facility]
--- NOTE | 2019-07-14 13:59 | NEPHROLOGY PROGRESS NOTE ---
DATE: 07/14/2019 SUBJECTIVE: He states he is still having diarrhea but improved. None overnight. No shortness of breath nausea vomiting. OBJECTIVE: Vital Signs: Blood pressure 93/54, heart rate 95, respiration 18, afebrile. General: No acute distress. Chronically ill. Conjunctivae are pink. Neck: Neck veins are not appreciated. Heart: Regular and distant. Lungs: Equal, shallow. No crackles. Abdomen: Soft. Bowel sounds present. Extremities: With trace to 1+ edema. No clubbing or cyanosis. IMPRESSION: Chronic kidney disease 5D. Electrolytes/acid base/volume status in target. He will have his routine treatment today and then the plan is for discharge to [facility] for rehabilitation. He can return to the outpatient clinic on Wednesday. cc: Luisito Delaney MD
[2019-07-14] MEDS: CENTRUM SILVER PO SCH (14:30)
[2019-07-14] MEDS: CULTURELLE PO SCH (14:30)
[2019-07-14] MEDS: HEPARIN SUBQ SCH (14:30)
[2019-07-14] MEDS: MEGACE LIQUID PO SCH (14:31)
[2019-07-14] MEDS: ICAR-C PO SCH (14:31)
[2019-07-14] MEDS: PROTONIX PO SCH (14:32)
[2019-07-14 16:08] VITALS: BP 127/49
== END 2019-07-14 16:58 | DRG 371 ==
LOC: ED 17:23 → SUATTDRO 07-05 00:34 → 3N 07-05 00:34 → 1N 07-05 12:37
PROVIDERS: ATTEND Internal Medicine